=== PATIENT | male | born 1940 | race Caucasian/White ===

== ENCOUNTER 2023-04-03 10:51 | Outpatient (CLI) | payer MEDICARE, SELFPAY ==
--- NOTE | ~2023-04-03 | CT_ITS ---
EXAMINATION: CT brain wo con DATE: 04/03/2023 11:06 INDICATION: Subdural hematoma. Memory impairment. TECHNIQUE: Computed tomography (CT) of the head was performed without intravenous contrast. The mA wa s adjusted according to patient size. Iterative reconstruction technique was employed. The dose-lengt h product was 674.51 mGy-cm. 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 There is no intracranial hemorrhage, acute infarction, or abnormal intracranial mass lesion. There are scattered areas of low attenuation in the cerebral white matter, which is within normal limits for the patient's age. The ve ntricles are normal in size. There is mild mucosal thickening in the paranasal sinuses. The orbits ar e normal. The mastoid air cells are normal. There are old britney holes bilaterally. IMPRESSION: 1. 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 Reviewed, dictated and finalized at location A.
== END 2023-04-03 10:52 ==
LOC: MICIMG 10:52
PROVIDERS: PCP Family Medicine Adolescent Medicine; Visit Provider Family Medicine Adolescent Medicine
DX: R41.3 Other amnesia (principal); Z86.79 Personal history of other diseases of the circulatory system; Z86.73 Personal history of transient ischemic attack (TIA), and cerebral infarction without residual deficits
CPT/HCPCS: 70450

== ENCOUNTER 2023-06-20 12:34 | Outpatient (CLI) | payer MEDICARE, SELFPAY ==
--- NOTE | 2023-06-20 14:30 | NEURO_ITS ---
Impression: # Complains of left hand weakness. # Left ulnar neuropathy across the elbow. # Evolving left Carpal Tunnel Syndrome. # Needle/EMG exam mildly neurogenic in the muscles mentioned. Nerve Conduction Studies Anti Sensory Summary Table Stim Site NR Peak (ms) P-T Amp (?V) Site1 Site2 Delta-P (ms) Dist (cm) Bruno (m/s) Left Median Anti Sensory (2-3nd Digit) Wrist 3.5 13.0 Wrist 2-3nd Digit 3.5 14.0 40 Wrist 3.5 17.2 Wrist 2-3nd Digit 3.5 14.0 40 Left Radial Anti Sensory (Base 1st Digit) Wrist 2.1 48.6 Wrist Base 1st Digit 2.1 0.0 Left Ulnar Anti Sensory (5th Digit) Wrist 2.4 33.5 Wrist 5th Digit 2.4 14.0 58 Motor Summary Table Stim Site NR Onset (ms) O-P Amp (mV) Site1 Site2 Delta-0 (ms) Dist (cm) Bruno (m/s) Left Median Motor (Abd Poll Brev) Wrist 4.0 1.2 Elbow Wrist 6.5 37.0 57 Elbow 10.5 2.3 Left Ulnar Motor (Abd Dig Minimi) Wrist 3.0 6.3 A Elbow Wrist 6.0 32.0 53 A Elbow 9.0 5.0 B Elbow Wrist 4.0 27.0 68 B Elbow 7.0 6.2 F Wave Studies NR F-Lat (ms) L-R F-Lat (ms) Left Median (Mrkrs) (Abd Poll Brev) 32.05 Left Ulnar (Mrkrs) (Abd Dig Min) 31.09 EMG Side Muscle Nerve Root Ins Act Fibs Amp Dur Recrt Comment Left 1stDorInt Ulnar C8-T1 Nml Nml Nml >12ms Reduced Left Ext Indicis Radial (Post Int) C7-8 Nml Nml Nml Nml Nml Left Ext Digitorum Radial (Post Int) C7-8 Nml Nml Nml Nml Nml Left BrachioRad Radial C5-6 Nml Nml Nml Nml Nml Left PronatorTeres Median C6-7 Nml Nml Nml Nml Nml Left Abd Poll Brev Median C8-T1 Nml Nml Nml Nml Nml Left ABD Dig Min Ulnar C8-T1 Nml Nml Nml >12ms Reduced MTDD
== END 2023-06-20 12:35 | disposition home or self-care (01) ==
PROVIDERS: PCP Family Medicine Adolescent Medicine; Visit Provider Student in an Organized Health Care Education/Training Program
DX: G56.22 Lesion of ulnar nerve, left upper limb (principal); G56.02 Carpal tunnel syndrome, left upper limb
CPT/HCPCS: 95886; 95909

== ENCOUNTER 2024-03-14 01:15 | Day surgery (SDC) | payer MEDICARE, SELFPAY ==
[2024-03-08 14:45] VITALS: BMI 27.1
--- NOTE | 2024-03-08 15:22 | PC.NURSE ---
Addendum entered by Jazmin Ibarra RN 03/11/24 11:20: Pt also notified no food or drink after midnight, except for small sip of water for medications. Verbalizes understanding. Addendum entered by Jazmin Ibarra RN 03/11/24 11:18: Pt notified to also take phenytoin as scheduled morning of surgery with a small sip of water. Original Note: Report to the Outpatient Waiting Room, entrance under the green pavilion located off [facility], at time __8:00AM on date __03/14/24 . Planned Procedure Time: __10:00AM . Time changes happen often and if your time is changed the preop area will call you the afternoon before. - You and your visitor will be asked to self-screen and do not enter if you have any COVID symptoms. - A mask is optional within the hospital at this time. Patients may have clear liquids (water, carbonated beverages, clear teas, apple juice) until 3 hours prior to surgery with a maximum of 20 ounces. - No food from midnight until time of surgery - Infants may have breast milk until 4 hours before surgery, formula 6 hours prior to surgery. - Children will be allowed to drink immediately following surgery. If applicable, please bring a bottle or sippy cup to assist with drinking. Juice, water, soda, and popsicles are readily available. For infants on formula, please bring formula the day of surgery. Pacifiers are allowed. Take the following medications with a SIP of water the morning of surgery: ___KEPPRA, METOPROLOL DO NOT STOP ANY OF YOUR OTHER PRESCRIPTION MEDICATIONS PRIOR TO SURGERY ?EXCEPT THE FOLLOWING Medications to discontinue per physician NONE Date to take last dose Please no make-up, nail ivorian, hairspray, perfume, deodorant, or body powder the day of surgery. No jewelry (including any body piercings) or valuables the day of surgery, leave them at home. Please take a shower or bath the night before, or the morning of, surgery with an antibacterial soap. Wear comfortable, loose fitting clothing. Children are encouraged to wear pajamas. - Jewelry must be removed prior to entering the operating room. Rings and piercings that are not removed may be cut off. - The hospital will not accept responsibility for valuables. - Please leave all valuables, including medications, at home the day of surgery. If you are going home after surgery, a licensed fuel oil truck driver must drive you home. - NO public transportation without another adult if you receive anesthesia. - We recommend that an adult stay with you for 24 hours following discharge. - We also recommend that you do not drive, make important decision, drink alcoholic beverages, or take any drugs that were not prescribed by your health care provider for at least 24 hours after your discharge time. For Pediatric surgeries, we recommend two adults accompany the child home. Follow any additional instructions given to you from your surgeon. If you or anyone in your household have experienced Covid symptoms in the past week, please notify your surgeon or the nurse liaison at the phone number below for possible testing. Telephone instructions given to ____PATIENT & WIFE and asked if any additional questions and then verbalized understanding. Patient advised to call surgeon office or pre surgery nurse liaison [phone] if any additional questions.
--- NOTE | 2024-03-14 07:05 | PM.HPGS ---
History of Present Illness History of Present Illness Chief complaint: lesion of Left ulnar nerve Narrative: Patient seen and examined in pre-operative holding area. No interval change in medical history or symptoms. Patient recalls previous discussion of benefits and alternatives to procedure. Continues to desire to proceed with left cubital tunnel release . Reviewed procedure, post-op expectations and risks including but not limited to bleeding, infection, injury to tendon/nerve/vessel, decreased hand function, stiffness, RSD, no change or worsening of symptoms. I discussed the possible use of assistants and their participation in the case. Patient stated understanding and signed the consent form wishing to proceed. Review of Systems Review of Systems: All systems reviewed & are unremarkable except as noted in HPI and below PMFSH Past Medical History Medical History Abnormal colonoscopy 08/07 polyp Repeat 08/12 History of atrial fibrillation 1998 History of rheumatic fever Surgical History Surgical History History of vein stripping Family History Family History Father Heart disease Social History Social History Smoking status: Former smoker Tobacco type: cigars Second hand tobacco smoke exposure: No Smoking end date: 02/18/19 Additional smoking assessment comments: SMOKED 1 CIGAR/DAY X 10 YRS Alcohol intake: current Drinks per week: 7 Alcohol use details: A glass of wine daily Substance use: never Substance use type: does not use Lack of Transportation: No Lack of Food: Never True Current Housing: I Have Housing Concerned About Future Housing: No Difficulty Paying Gas/Electric Bills: No Difficulty Paying for Meds: No Currently Unemployed: No Education: Master's Degree or Higher Difficulty w/ Childcare or Family Care: No Living arrangements: with family Additional living arrangements comments: Occupation/Education: retired Gender identity (if verbalized by the patient): Male Sexual Orientation (if Verbalized by the Patient): Straight or Heterosexual Spiritual care concerns: No Agree to blood products: Yes Meds Home Medications and Allergies Home Medications Medication Instructions Recorded Confirmed Type tamsulosin 0.4 mg capsule 0.4 mg PO DAILY 11/24/21 03/08/24 History acetaminophen 500 mg tablet 1,000 mg PO Q6-8H PRN Pain 05/02/22 03/08/24 History (Tylenol Extra Strength) enalapril maleate 5 mg tablet 15 mg PO BID 05/02/22 03/08/24 History metoprolol tartrate 50 mg tablet 50 mg PO BID 05/02/22 03/08/24 History simvastatin 20 mg tablet 20 mg PO DAILY 05/02/22 03/08/24 History famotidine 20 mg tablet 20 mg PO QHS 06/01/23 03/08/24 History finasteride 5 mg tablet 5 mg PO DAILY #100 tabs 09/29/23 03/08/24 Rx donepezil 10 mg tablet See Rx Instructions .Route 12/21/23 03/08/24 Rx .COMPLEX #90 tabs levetiracetam 500 mg tablet 1,000 mg PO BID #180 tabs 12/21/23 03/08/24 Rx memantine 10 mg tablet 10 mg PO BID #180 tabs 12/21/23 03/08/24 Rx phenytoin sodium extended 100 mg 100 mg PO TID #270 caps 12/21/23 03/08/24 Rx capsule Allergies Allergy/AdvReac Type Severity Reaction Status Date / Time shellfish derived AdvReac Severe Vomiting Verified 03/08/24 14:38 Exam Narrative: unchanged Assessment and Plan Assessment and plan (1) Ulnar neuropathy: Qualifiers: Laterality: left Qualified Code(s): G56.22 - Lesion of ulnar nerve, left upper limb Code(s): G56.20 - Lesion of ulnar nerve, unspecified upper limb Status: Acute Assessment and Plan: cont as above
--- NOTE | 2024-03-14 07:06 | W.PM.PROC2 ---
Procedure Note - Detailed Date of Procedure 03/14/24 Pre-op Diagnosis left cubital tunnel syndrome Post-op Diagnosis Same Procedure Performed left CuTR Surgeon Heide Levi MD Client Service Coordinator tamar michelle pa-c Anesthesia MAC Description of Procedure INFORMED CONSENT:The patient was seen and examined and marked in the pre-op area.? The patient signed the consent form. PROCEDURE IN DETAIL: The patient taken back to OR on the stretcher in supine position. Time out performed with anesthesia, surgeon and staff agreeing on patient's name site and surgery to be performed SCDs were placed on the lower extremities and inflated A tourniquet was placed on {left} upper extremity and antibiotics given IV After anesthesia administered sedation I injected {8}cc 1%lido with epi and 0.5% marcaine plain at the operative site The?{left upper extremity}?was prepped and draped in sterile fashion the??{left upper extremity} was??exsanguinated with Esmarch bandage and tourniquet inflated to 250mmHg I next proceeded with making a longitudinal incision between two heads for flexor carpi ulnaris at end of {left} cubital tunnel with 15 blade scalpel.? Littler scissors were used to spread down to FCU fascia.? An incision was made in FCU fascia and ulnar nerve identified exiting cubital tunnel.? I proceeded with complete retrograde release of the cubital tunnel including 7cm proximal for the intermuscular septum.? The nerve appeared healthy with visible vaso nervorum.? There was no subluxation on full elbow range of motion. ? I irrigated with normal saline and closure with 4-0 monocryl for dermis and subcuticular. The incision was covered with Dermabond then 4x4s, hawa, and a posterior elbow splint for patient safety, security and comfort and secured with [place] bandages after the tourniquet was let down noting the hand was warm and well perfused.? Patient awaken from anesthesia and transferred to recovery in stable condition Complications - none EBL- 1cc Disposition - home in stable conditions tamar michelle pa-c was essential for positioning, retraction, closure and dressing placement [facility] Billing Surgery - Charge Forward: Surgery Billing ([id number] for tamar)
[2024-03-14 08:17] VITALS: BP 141/61; PULSE 49; RESP 18; TEMP 36.4; O2SAT 100
[2024-03-14 08:20] VITALS: BMI 28.9
[2024-03-14] MEDS: LIDO 1%/EPINEPHRINE 1:100,000 20 ML VIAL 10 ML INFILTRATE (08:29)
--- NOTE | 2024-03-14 09:18 | WPDANESEPPF ---
Anes - Initial Pre Proc Eval Procedure: Operation Date: 03/14/24 10:00 Proposed Procedures p Left Cubital Tunnel Release - Heide Levi MD Date/Time: 03/14/24 09:18 Surgeon: Heide Levi MD Pre Op Diagnosis: lesion of Left ulnar nerve Patient Data Age: 83 Gender: M Height: 1.83 m Weight: 91 kg Allergies Allergy/AdvReac Type Severity Reaction Status Date / Time shellfish derived AdvReac Severe Vomiting Verified 03/08/24 14:38 Home Medications Medication Instructions Recorded Confirmed Type tamsulosin 0.4 mg capsule 0.4 mg PO DAILY 11/24/21 03/08/24 History acetaminophen 500 mg tablet 1,000 mg PO Q6-8H PRN Pain 05/02/22 03/08/24 History (Tylenol Extra Strength) enalapril maleate 5 mg tablet 15 mg PO BID 05/02/22 03/08/24 History metoprolol tartrate 50 mg tablet 50 mg PO BID 05/02/22 03/08/24 History simvastatin 20 mg tablet 20 mg PO DAILY 05/02/22 03/08/24 History famotidine 20 mg tablet 20 mg PO QHS 06/01/23 03/08/24 History finasteride 5 mg tablet 5 mg PO DAILY #100 tabs 09/29/23 03/08/24 Rx donepezil 10 mg tablet See Rx Instructions .Route 12/21/23 03/08/24 Rx .COMPLEX #90 tabs levetiracetam 500 mg tablet 1,000 mg PO BID #180 tabs 12/21/23 03/08/24 Rx memantine 10 mg tablet 10 mg PO BID #180 tabs 12/21/23 03/08/24 Rx phenytoin sodium extended 100 mg 100 mg PO TID #270 caps 12/21/23 03/08/24 Rx capsule Laboratory Tests 03/14/24 08:48 Phenytoin Pending Patient hx anesthesia problems: none Family hx anesthesia problems: none Results Review: All pre-operative results and documents have been reviewed as part of the pre-operative evaluation. [facility] Past Medical History Medical History Abnormal colonoscopy 08/07 polyp Repeat 08/12 History of atrial fibrillation 1997 History of rheumatic fever Surgical History Surgical History History of vein stripping Family History Family History Father Heart disease Social History Social History Smoking status: Former smoker Tobacco type: cigars Second hand tobacco smoke exposure: No Smoking end date: 02/18/19 Additional smoking assessment comments: SMOKED 1 CIGAR/DAY X 10 YRS Alcohol intake: current Drinks per week: 7 Alcohol use details: A glass of wine daily Substance use: never Substance use type: does not use Lack of Transportation: No Lack of Food: Never True Current Housing: I Have Housing Concerned About Future Housing: No Difficulty Paying Gas/Electric Bills: No Difficulty Paying for Meds: No Currently Unemployed: No Education: Master's Degree or Higher Difficulty w/ Childcare or Family Care: No Living arrangements: with family Additional living arrangements comments: Occupation/Education: retired Gender identity (if verbalized by the patient): Male Sexual Orientation (if Verbalized by the Patient): Straight or Heterosexual Spiritual care concerns: No Agree to blood products: Yes Anes - Eval Final PreProcedure Day of Procedure 03/14/24 09:18 Patient weight: overweight Heart: regular rate and rhythm Lungs: clear to auscultation Airway: Mallampati scale Neurological: alert and oriented Last oral intake: >/= 8 hours ASA classification: III Emergent: no Anesthetic plan: proceed Anesthesia type and monitoring: general GIVS and standard monitoring Results Review: All pre-operative results and documents have been reviewed as part of the pre-operative evaluation. PTCA 1997, hx of [place]/VT and defib at that time. 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 Stress 2019 without ischemia, pt without cp or sob. Hx of subdural hematoma in the past. Informed Consent: The patient's anesthetic plan and
[2024-03-14 09:26] LABS: Phenytoin Dilantin < 3 ug/mL (10-20)
--- NOTE | 2024-03-14 09:40 | SUR.PREOP ---
2137- Notified Dr. Kiran patient's heart rate in high 40's with pacemaker/defib in place. Form on hard chart for pacemaker and OK to proceed with procedure. 0140- Patient's phenytoin level from today's draw resulted at less than 3. Dr. Kiran made aware of phenytoin level and OK to proceed with surgery.
[2024-03-14] MEDS: ceFAZolin 2 GM/D5W 50 ML 2 GM/50 ML BAG IVPB (09:49)
[2024-03-14 10:15] VITALS: BP 116/58; PULSE 54; RESP 14; O2SAT 97
[2024-03-14] MEDS: LACTATED RINGERS 1,000 ML 30 ML IV CONT (10:15)
[2024-03-14 10:45] VITALS: BP 105/57; PULSE 65; RESP 16; O2SAT 96
[2024-03-14 11:15] VITALS: BP 144/60; PULSE 51; RESP 16
== END 2024-03-14 11:25 | disposition home or self-care (01) ==
PROVIDERS: Anesthesiology; PCP Family Medicine Adolescent Medicine; Visit Provider Plastic Surgery
PROC: (CPT 64721; principal; 2024-03-14 10:00)
DX: G56.22 Lesion of ulnar nerve, left upper limb (principal); Z87.891 Personal history of nicotine dependence
CPT/HCPCS: 64718; 36415; 80185; J0690; J1100; J2405; J2704; J3010; J7120

== ENCOUNTER 2024-12-12 08:39 | Outpatient (CLI) | payer MEDICARE, SELFPAY ==
--- OUTSIDE RECORDS SUMMARY | 2024-12-12 09:16 | XMS_ITS ---
Author Organization [facility] Address [address] [place], [place] [id number] Care Team Providers Care School Laboratory Technician Name Role Phone Yareli ABRAMS, Ashley Primary Care Provider Unavailable Chris Barth Unavailable [phone] Alonso Sequeira [phone] REASON FOR VISIT 1yr audio Encounters Encounter Location Date Provider Diagnosis [facility] [address] [place], [place] [id number] 10/18/2023 Alonso Sequeira PLAN OF TREATMENT No Information Progress Notes * Antoni MCCORMICKDOB:1940 (84 yo M)Acc No.[id number]:10/18/2023 Audiogram Patient: CLIF Antoni Resendez Provider: Rosa CORONEL :1940 Age:83 Y Sex:Male Date:10/18/2023 Address:[address] [place], [place] [id number] Pcp:Claudy Alcocer Subjective: * Chief Complaints: * 1. 1yr audio. * Medical History: Objective: Assessment: Plan: * Treatment: * Billing Information: * Visit Code: * Procedure Codes: * Sign off status: Pending * Provider: Rosa CORONEL Date: 10/18/2023
--- OUTSIDE RECORDS SUMMARY | 2024-12-12 09:16 | XMS_ITS | Clinical Summary ---
Author Organization [facility] Address [address] [place] [id number] Care Team Providers Care Cable Splicer Name Role Phone Unavailable Primary Care Provider Unavailabl e Social History Tobacco Use Types Packs/Day Years Used Date Smoking Tobacco: Never Assessed Sex and Gender Information Value Date Recorded Sex Assigned at Not on file Legal Sex Male 4:05 PM CDT Gender Identity Not on file Sexual Orientation Not on file Plan of Treatment Health Maintenance Due Date Last Done Comments DTaP, Tdap and Td Vaccines ( 1 - Tdap) 1960 Pneumococcal Vaccine: 50+ Ye ars (1 of 1 - PCV) 1991 Zoster Vaccines (1 of 2) 1991 RSV Immunization or 60+ Years (1 - 1-dose 75+ series) 2016 COVID-19 Vaccine ( - 2023-2 5 season) 2024 Meningococcal B Vaccine Aged Out No l onger eligible based on patient's age to complete this topic Meningococcal Vaccine Aged Out No zak hussein eligible based on patient's age to complete this topic RSV Immunizations Under 20 Months Aged Out No longer eligible based on patient's age to complete this topic
--- OUTSIDE RECORDS SUMMARY | 2024-12-12 09:16 | XMS_ITS | Clinical Summary ---
Author Organization [facility] D Address [address] [place] [id number] Care Team Providers Care Broadcast Journalist Name Role Phone Vincenzo East MD Primary Care Prov ider Allergies Active Allergy Reactions Criticality Noted Date Comments Shellfish Nausea And Vomiting,Nausea & Vomiting High 11/27/2012 Shellfish Containing Products Nausea And Vomiting High 11/27/2012 Pt reports severe allergic reaction to shellfish. Pt reports severe allergic reaction to shellfish. Sulfa (Sulfonamide Antibiotics) Nausea And Vomiting High 07/18/2018 Medications enalapril (VASOTEC) 5 mg tablet Take 3 tablets (15 mg total) by mouth 2 (two) times a day Active metoprolol tartrate (LOPRESSOR) 50 mg immediate release tablet Take 1 tablet (50 mg total) by mouth 2 (two) times a day Active simvastatin (ZOCOR) 20 mg tablet Take 1 tablet (20 mg total) by mouth nightly Active tamsulosin (FLOMAX) 0.4 mg extended release capsule Take 1 capsule (0.4 mg total) by mouth nightly Active levETIRAcetam (KEPPRA) 500 mg tablet Take 1 tablet (500 mg total) by mouth 2 (two) times a day 06/04/2022 Active acetaminophen (TYLENOL) 500 mg tablet Take 2 tablets (1,000 mg total) by mouth daily as needed Active aspirin 81 mg enteric coated tablet Take 1 tablet (81 mg total) by mouth daily 06/17/2022 Active donepeziL (ARICEPT) 10 mg tablet Take 1 tablet (10 mg total) by mouth nightly at bedtime 11/21/2022 Active senna (SENOKOT) 8.6 mg tablet Take 1 tablet by mouth nightly 30 tablet 11 04/05/2022 Active famotidine (PEPCID) 20 mg tablet Take 1 tablet (20 mg total) by mouth 01/02/2023 Active finasteride (PROSCAR) 5 mg tablet 10/03/2023 Active naproxen (NAPROSYN) 500 mg tablet TAKE 1 TABLET BY MOUTH TWICE DAILY WITH FOOD NEEDED FOR PAIN Active Active Problems Problem Noted Date Diagnosed Date Elevated troponin level not due myocardial infar ction 10/20/2024 Scalp laceration 10/20/2024 Syncope and collapse 10/20/2024 Benign prostatic hyperplasia without lower urinary tract symptoms 09/08/2022 Tinnitus 08/30/2022 Fall 08/30/2022 SDH (subdural hematoma) 03/30/2022 Intracranial hemorrhage 03/26/2022 Chronic intracranial subdural hematoma 2 Overview (11/24/2022): 1 week ago Traumatic subarachnoid bleed with LOC of 1 hour to 5 hours 59 minutes, initial encounter 01/20/2022 Traumatic hemorrhage of cerebral white matter SAH (subarachnoid hemorrhage) 01/18/2022 Osteoarthritis 11/26/2020 Preop testing 07/04/2019 Hiatal hernia 06/09/2019 SVT (supraventricular tachycardia) 06/06/2019 Overview (11/26/2020): Last Assessment & Plan: These episodes likely represent SVT. This is because the farfield electrogram during the tachycardia resembles that of baseline. Fortunately, ATP results in reliable termination of these episodes, and as he has not had any episodes recently, will cont current therapy. He had a repeat echocardiogram in 12/2018 that showed EF 55%. # cont metoprolol 50mg PO BID # f/u with Lupe Barton for routine device checks # if symptomatic episodes develop, or become more frequent, can discuss EPS with ablation or increasing BB Assessment & Plan (05/11/2021 12:33 PM CDT): Best characterized as atrial tachycardia/fibrillation. He is asymptomatic, but has experienced inappropriate shocks in the past. He is off amiodarone (citing nausea), and has not been found to have recurrence. Device programming has been altered in order to hopefully avoid therapies for atrial fibrillation. If he does experience significant recurrence, sotalol may be initiated. The patient will follow-up with me in 12 months for an office visit and twelve- lead ECG. Assessment & Plan (01/07/2021 12:45 PM CDT): Likely atrial tachycardia verses atrial fibrillation/flutter. He is currently suppressed with amiodarone but may eventually switched to sotalol under Dr. Reece direction. Will obtain echo Doppler after his return from [place] to be sure that there has been no structural cardiac change which may have precipitated his arrhythmia. 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 He has a defibrillator. Assessment & Plan (07/04/2019 6:16 PM INSPECT[employer]ING): Asymptomatic. No recent recurrence. Assessment & Plan (12/31/2018 12:26 PM CDT): Normally functioning defibrillator. He is followed at [facility] for his arrhythmia. Belching 12/07/2018 Gastroesophageal reflux disease without esophagi tis 12/07/2018 ICD (implantable cardioverter-defibrillator) in place 01/01/2018 Overview (05/03/2021): Medtronic Evera XT VR ICD implanted 11/25/15 for VF. [place] - [facility] Assessment & Plan (06/19/2024 10:26 AM CDT): No [facility] transmissions in a year. The patient and spouse report that they have difficulty setting up the equipment in their home. Will ask nurses from the device Clinic to reach out to them. Assessment & Plan (06/23/2023 12:01 PM CDT): Interrogated today. Device is functioning normally. Follow. Assessment & Plan (11/27/2022 11:30 AM CDT): Status post defibrillator for VF. The patient's device was interrogated and found to be functioning appropriately. No substantial changes to programming were made. The patient is enrolled in the [facility], and we will continue to follow with remote monitoring when possible, and in-office device checks when necessary. Previously, the patient had shocks for SVT/atrial tachycardia; this has not been a issue recently. The patient will follow-up with me in 12 months for an office visit and twelve- lead ECG. Assessment & Plan (05/16/2022 6:32 AM CDT): Status post defibrillator for ventricular fibrillation, which occurred around the time of a series of infarcts. The best of my knowledge, the patient has not experienced significant ventricular arrhythmia or appropriate shocks since his device was placed over 20 years ago. His most recent series of events in the tachycardia zone again appears to be supraventricular in origin. He has been minimally symptomatic, and is overall burden of atrial arrhythmia appears very low. I raised his tachycardia zone to avoid further therapies for SVT. His device still monitors at 150 beats per minute. The patient's device was interrogated and found to be functioning appropriately. No substantial changes to programming were made. The patient is enrolled in the [facility], and we will continue to follow with remote monitoring when possible, and in-office device checks when necessary. The patient will follow-up with me in 6 months for an office visit and twelve- lead ECG. Assessment & Plan (06/25/2021 12:08 PM CDT): Followed by Dr. Reece. Assessment & Plan (05/11/2021 12:33 PM CDT): The patient's device was interrogated and found to be functioning appropriately. No substantial changes to programming were made. The patient is enrolled in the [facility], and we will continue to follow with remote monitoring when possible, and in-office device checks when necessary. Assessment & Plan (01/05/2021 1:39 PM CDT): The patient is status post defibrillator placement for [place] ventricular fibrillation in 1997. Recently, he experienced shocks per what appears to be atrial fibrillation/tachycardia with rapid rates. As far as we can tell, he has never received appropriate therapies in the past. He was initiated on amiodarone, which we will taper and continue. If he continues to remain free from arrhythmia, we may consider changing to sotalol in 6 months time. The patient's device was interrogated and found to be functioning appropriately. I made changes to his ventricular tachycardia and ventricular fibrillation zones, and added a monitoring zone. The patient is enrolled in the [facility], and we will continue to follow with remote monitoring when possible, and in-office device checks when necessary. I expect a monitor zone to record any rapidly conducting atrial fibrillation that the patient may have. If he is found to have a significant arrhythmia burden, anticoagulation would be recommended. Assessment & Plan (07/04/2019 6:16 PM INSPECTOR [employer]KE [employer]ING): Followed through [facility]. Functioning normally. Assessment & Plan (07/02/2018 11:27 AM INSPECTOR [employer]KE [employer]ING): Monitored at [facility]. Assessment & Plan (01/01/2018 12:01 PM CDT): Up-to-date with follow-up through [facility]. Coronary artery disease of n ative artery of [place] heart with stable angina pectoris ([facility]) 07/03/2017 Assessment & Plan (06/19/2024 10:25 AM CDT): Doing well. No chest discomfort. Continue aspirin, metoprolol, Zocor. Assessment & Plan (06/23/2023 12:00 PM CDT): Doing well. No chest discomfort. Continue aspirin and statin. Assessment & Plan (06/17/2022 11:44 AM CDT): Doing well. No chest discomfort on his current regimen. Continue metoprolol. Have asked him to resume aspirin 81 mg daily. Assessment & Plan (12/24/2021 11:15 AM CDT): Doing reasonably well. No chest discomfort. Continue secondary prevention with aspirin and statin. His primary care physician is requesting a change from metoprolol to propanolol to address a tremor. I do not have a strong objection but would recommend that an equivalent dose of propranolol be prescribed as a substitute for his metoprolol. Assessment & Plan (06/25/2021 12:06 PM CDT): No symptoms of myocardial ischemia. Continue aspirin 81 mg daily and metoprolol 50 mg b.i.d.. Assessment & Plan (01/07/2021 12:43 PM CDT): No symptoms of myocardial ischemia. Recent arrhythmia being supraventricular is probably not ischemically mediated. Continue aspirin and metoprolol. Assessment & Plan (05/08/2020 5:07 PM CDT): No symptoms of myocardial ischemia. Favorable myocardial perfusion study 07/10/2019. He is cleared for his upcoming surgery and is anticipated to be at low risk of cardiac complications. Assessment & Plan (07/04/2019 6:14 PM INSPECTOR [employer]ING): No symptoms of myocardial ischemia. It has been over three years since his last myocardial perfusion study, and I have recommended that this be repeated prior to his upcoming hiatal hernia surgery. Continue aspirin. Assessment & Plan (12/31/2018 12:25 PM CDT): No symptoms of myocardial ischemia. Continue aspirin and metoprolol. Assessment & Plan (07/02/2018 11:26 AM INSPECTOR [employer]ING): No symptoms of myocardial ischemia. Continue aspirin. Assessment & Plan (01/01/2018 12:00 PM CDT): No symptoms of myocardial ischemia. Continue aspirin Assessment & Plan (07/03/2017 12:00 PM INSPECTOR [employer]ING): Asymptomatic. Continue ASA and beta khushi tx. Mixed hyperlipidemia 07/03/2017 Assessment & Plan (06/19/2024 10:25 AM CDT): Well controlled on his last assessment. Continue Zocor. Assessment & Plan (06/23/2023 12:00 PM CDT): LDL acceptable today at 63 mg/dL. Continue simvastatin. Assessment & Plan (12/24/2021 11:15 AM CDT): Continue Zocor. Lipid panel today. His HDL exceeds 100 mg/dL. Unable to calculate LDL. Assessment & Plan (06/25/2021 12:08 PM CDT): He is on less than high-intensity statin therapy but LDL on 11/04/2020 was 59. Continue simvastatin 20 mg daily. Assessment & Plan (01/07/2021 12:45 PM CDT): On chronic lipid lowering therapy with good control. No changes made. Assessment & Plan (05/08/2020 5:07 PM CDT): On chronic lipid lowering therapy with good control. No changes made. Assessment & Plan (07/04/2019 6:15 PM INSPECTOR [employer]KE [employer]ING): On chronic lipid lowering therapy with good control. No changes made. Assessment & Plan (12/31/2018 12:25 PM CDT): On chronic lipid lowering therapy with good control. No changes made. Assessment & Plan (07/02/2018 11:27 AM INSPECTOR [employer]ING): On chronic lipid lowering therapy with good control. No changes made. Because of his high HDL, LDL cannot be calculated, but is definitely less than 83. Assessment & Plan (01/01/2018 12:00 PM CDT): On chronic lipid lowering therapy with good control. No changes made. Assessment & Plan (07/03/2017 12:01 PM INSPECTOR [employer]KE [employer]ING): LDL could not be calculated because of high HDL. Will have lab draw. Continue statin rx. Essential hypertension 07/03/2017 Assessment & Plan (06/17/2022 11:44 AM CDT): Well controlled. Continue metoprolol and enalapril. Assessment & Plan (06/25/2021 12:07 PM CDT): Blood pressure is well controlled on Vasotec 15 mg b.i.d. and metoprolol 50 mg b.i.d.. I do not believe his cough is related to vasotec as it is a productive rather than a dry cough. Assessment & Plan (01/07/2021 12:43 PM CDT): Blood pressure is adequately controlled on current regimen. No change was made. Assessment & Plan (05/08/2020 5:07 PM CDT): Blood pressure is adequately controlled on current regimen. No change was made. Assessment & Plan (07/04/2019 6:15 PM INSPECTOR [employer]ING): Blood pressure is adequately controlled on current regimen. No change was made. Assessment & Plan (12/31/2018 12:26 PM CDT): Blood pressure is adequately controlled on current regimen. No change was made. Assessment & Plan (07/02/2018 11:26 AM INSPECTOR [employer]ING): Blood pressure is adequately controlled on current regimen. No change was made. Assessment & Plan (01/01/2018 12:00 PM CDT): Blood pressure is adequately controlled on current regimen. No change was made. Assessment & Plan (07/03/2017 12:06 PM INSPECTOR [employer]ING): Blood pressure is adequately controlled on current regimen. No change was made. AICD at end of battery life 11/25/2015 Resolved Problems Problem Noted Date Diagnosed Date Resolved Date On amiodarone therapy 01/05/20212020 Assessment & Plan (01/05/2021 1:38 PM CDT): 12-lead ECG today does not demonstrate any changes that would prohibit continued use of amiodarone. I will reduce his dose to 200 mg daily at this time. As long as the patient continues on this medication, an ECG should be performed at least every 6 months to monitor for toxicity. Liver function tests and thyroid function tests should be performed at least every 6 months, an assessment of pulmonary function will be needed yearly. The patient will follow-up with me in 4 months for an office visit and twelve- lead ECG. Heart attack 08/22/2011 06/19/2024 Encounters Date Type Department Care Team Description 12/09/2024 11:41 AM CDT - 12/09/2024 11:59 PM CDT Hospital Encounter [id number] [address] [place] [id number] Bilateral hip pain; Aftercare following bilateral hip joint replacement surgery Discharge Disposition: Discharge to home or self care 12/09/2024 11:10 AM CDT Office Visit [facility] Orthopaedic Surgery [address] [place] [address] Gautam Bain MD Bilateral hip pain (Primary Dx); Aftercare following bilateral hip joint replacement surgery from Last 3 Months Immunizations Immunization Administration Dates Next Due Hep A, Adult 05/27/2019 Influenza Virus Vaccine Trivalent Mdv 06/17/2021 ,04/24/2020 Influenza, Trivalent, High D ose, Split, Preservative Free, Intramuscular 06/17/2021 Moderna SARS-CoV-2 Monovalen t Vaccination (12+ YRS) 06/17/2021,11/04/2020,10/06/2020 Pfizer SARS-CoV-2 Monovalent Vaccination (12+ Yrs) PURPLE 06/17/2021 TD Preservative Free 10/20/2024 Surgical History Surgery Date Site/Laterality Comments TOTAL HIP ARTHROPLASTY Bilateral Total Hip Replacement ARM SURGERY arm surgery VEIN LIGATION AND STRIPPING Vein Stripping CORONARY STENT PLACEMENT Coronary Stent Placement CARDIAC DEFIBRILLATOR PLACEMENT Implantable Defibrillator JOINT REPLACEMENT HERNIA REPAIR HIATAL HERNIA REPAIR Medical History Medical History Date Comments Presence of single chamber a utomatic cardioverter/defibrillator (AICD) 01/01/2018 Medtronic Virtuoso V /ICD implanted 08/19/2008 for [id number]. PATIENTS ICD IS FOLLOWED AT [facility] Hiatal hernia GERD (gastroesophageal reflux disease) Gastric reflux Hypercholesteremia Family History Medical History Relation Name Comments Heart attack Father Relation Name Status Comments Father Mother Social History Tobacco Use Types Packs/Day Years Used Date Smoking Tobacco: Never Smokeless Tobacco: Never Tobacco Cessation:Counseling Given: Not Answered Alcohol Use Standard Drinks/Week Comments Yes 1 (1 standard drink = 0.6 oz pur e alcohol) daily Sex and Gender Information Value Date Recorded Sex Assigned at Not on file Legal Sex Male 9:13 PM INSPECT[employer] Gender Identity Not on file Sexual Orientation Not on file Occupation Industry Job Start Date Job End Date Retired Not on file Not on file Not on file Obstetrics History Last Filed Vital Signs Vital Sign Reading Time Taken Comments Blood Pressure 120/64 06/19/2024 9:40 AM CDT Pulse 64 06/19/2024 9:40 AM CDT Temperature 37 C (98.6 F) 12/07/2020 7:50 PM CDT Respiratory Rate 16 05/12/2022 10:09 AM CDT Oxygen Saturation 95% 06/19/2024 9:40 AM CDT Inhaled Oxygen Concentration - - Weight 90.7 kg (200 lb) 06/19/2024 9:40 AM CDT Height 180.3 cm (5' 11 ) 06/19/2024 9:40 AM CDT Body Mass Index 27.89 06/19/2024 9:40 AM CDT Plan of Treatment Health Maintenance Due Date Last Done Comments Depression Screening 1941 Fall Risk Assessment 1941 Hepatitis B Screening 1959 Pneumococcal vaccine 65+ (1 of 2 - PCV) 1960 Zoster Vaccine (1 of 2) 1991 Well Visit 65+ 2006 Covid-19 Vaccine (5 - 2023-2 5 season) 2024 06/17/2021, 06/17/2021, 11/04/2020, Additional history exists DTaP/Tdap/Td Vaccine (1 - Tdap) 10/21/2024 Influenza Vaccine (Season Ended) 2025 06/17/2021, 06/17/2021, 04/24/2020 Procedures Procedure Name Priority Date/Time Associated Diagnosis Comments XR HIPS BILATERAL 3 OR 4 VW Schedule Routine, Read Routine (OP Routine) 12/09/2024 12:05 PM CDT Bilateral hip pain Aftercare following bilateral hip joint replacement surgery from Last 3 Months Results * XR Hips Bilateral 3 or 4 Views (12/09/2024 12:05 PM CDT) Anatomical Region Laterality Modality Lower Extremities, Hip, Pelvis Bilateral C omputed Radiography 12/09/2024 12:3 9 PM CDT Impressions 12/09/2024 12:39 PM CDT Unchanged bilateral total hip arthroplasty with asymmetric liner wear of the left hip arthroplasty. Electronically signed by: Steven Braxton D.O. Narrative 12/09/2024 12:39 PM CDT EXAMINATION: XR HIPS BILATERAL 3 OR 4 VW HISTORY: TERESA CHAVA F/U COMPARISON: Radiographs 12/11/2023 FINDINGS: Right total hip arthroplasty in expected position. Left total hip arthroplasty with unchanged asymmetric liner wear of the left hip arthroplasty with superior migration of the femoral head component. No osteolysis or periprosthetic fracture bilaterally. Mild pubic symphysis arthrosis. Right inguinal herniorrhaphy clips. Procedure Note Steven Braxton, - 12/09/2024 EXAMINATION: XR HIPS BILATERAL 3 OR 4 VW HISTORY: ETRESA CHAVA F/U COMPARISON: Radiographs 12/11/2023 FINDINGS: Right total hip arthroplasty in expected position. Left total hip arthroplasty with unchanged asymmetric liner wear of the left hip arthroplasty with superior migration of the femoral head component. No osteolysis or periprosthetic fracture bilaterally. Mild pubic symphysis arthrosis. Right inguinal herniorrhaphy clips. IMPRESSION: Unchanged bilateral total hip arthroplasty with asymmetric liner wear of the left hip arthroplasty. Electronically signed by: Steven Braxton D.O. Gautam Bain MD IMG XR PROCEDURES Final Resul t from Last 3 Months Insurance [facility] MEDICARE ADVANTAGE UHC MEDICARE ADVANTAGE UHC MEDICARE ADVANTAGE Care Teams Broadcast Journalist Relationship Specialty Start Date End Date Vincenzo East MD [address] [place] [address] PCP - General 07/02/13
--- OUTSIDE RECORDS SUMMARY | 2024-12-12 09:16 | XMS_ITS | Referral Summary ---
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 Discharge Disposition: Discharge to home or self care 12/09/2024 11:10 AM CDT Office Visit [facility] Orthopaedic Surgery [address] [place] [address] Medical Office Building [address] [place] [address] Gautam aBin MD Bilateral hip pain (Primary Dx); 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 He has a defibrillator. Assessment & Plan (07/04/2019 6:16 PM REFRACTORY MIXER): Asymptomatic. No recent recurrence. Assessment & Plan (12/31/2018 12:26 PM CDT): Normally functioning defibrillator. He is followed at [facility] for his arrhythmia. 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 Recently, he experienced [...] recommended. Assessment & Plan (07/04/2019 6:16 PM REFRACTORY MIXER): Followed through [facility]. Functioning normally. Assessment & Plan (07/02/2018 11:27 AM REFRACTORY MIXER): Monitored at [facility]. Assessment & Plan (01/01/2018 12:01 PM CDT): Up-to-date with follow-up through [facility]. 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 Assessment & Plan (07/04/2019 6:14 PM REFRACTORY MIXER): No symptoms of myocardial ischemia. It has been over three years since his last myocardial perfusion study, and I have recommended that this be repeated prior to his upcoming hiatal hernia surgery. Continue aspirin. Assessment & Plan (12/31/2018 12:25 PM CDT): No symptoms of myocardial ischemia. Continue aspirin and metoprolol. Assessment & Plan (07/02/2018 11:26 AM REFRACTORY MIXER): No symptoms of myocardial ischemia. Continue aspirin. Assessment & Plan (01/01/2018 12:00 PM CDT): No symptoms of myocardial ischemia. Continue aspirin Assessment & Plan (07/03/2017 12:00 PM REFRACTORY MIXER): Asymptomatic. Continue ASA and beta khushi tx. [...] made. Assessment & Plan (07/04/2019 6:15 PM REFRACTORY MIXER): On chronic lipid lowering therapy with good control. No changes made. Assessment & Plan (12/31/2018 12:25 PM CDT): On chronic lipid lowering therapy with good control. No changes made. Assessment & Plan (07/02/2018 11:27 AM REFRACTORY MIXER): On chronic lipid lowering therapy with good control. No changes made. Because of his high HDL, LDL cannot be calculated, but is definitely less than 83. Assessment & Plan (01/01/2018 12:00 PM CDT): On chronic lipid lowering therapy with good control. No changes made. Assessment & Plan (07/03/2017 12:01 PM REFRACTORY MIXER): LDL could not be calculated because of [...] made. Assessment & Plan (07/04/2019 6:15 PM REFRACTORY MIXER): Blood pressure is adequately controlled on current regimen. No change was made. Assessment & Plan (12/31/2018 12:26 PM CDT): Blood pressure is adequately controlled on current regimen. No change was made. Assessment & Plan (07/02/2018 11:26 AM REFRACTORY MIXER): Blood pressure is adequately controlled on current regimen. No change was made. Assessment & Plan (01/01/2018 12:00 PM CDT): Blood pressure is adequately controlled on current regimen. No change was made. Assessment & Plan (07/03/2017 12:06 PM REFRACTORY MIXER): Blood pressure is adequately controlled on current [...] twelve- lead ECG. Heart attack 08/22/2011 06/19/2024 Immunizations Immunization Administration Dates Next Due Hep A, Adult 05/27/2019 Influenza Virus Vaccine Trivalent Mdv 06/17/2021 ,04/24/2020 Influenza, Trivalent, High D ose, Split, Preservative Free, Intramuscular 06/17/2021 Moderna SARS-CoV-2 Monovalen t Vaccination (12+ YRS) 06/17/2021,11/04/2020,10/06/2020 Pfizer SARS-CoV-2 Monovalent Vaccination (12+ Yrs) PURPLE 06/17/2021 TD Preservative Free 10/20/2024 Social History Tobacco Use Types Packs/Day Years Used Date Smoking Tobacco: Never Smokeless Tobacco: Never Tobacco Cessation:Counseling Given: Not Answered Alcohol Use Standard Drinks/Week Comments Yes 1 (1 standard drink = 0.6 oz pur e alcohol) daily Sex and Gender Information Value Date Recorded Sex Assigned at Not on file Legal Sex Male 9:13 PM REFRACTORY MIXER Gender Identity Not on file Sexual Orientation Not on file Occupation Industry Job Start Date Job End Date Retired Not on file Not on file Not on file Last Filed Vital Signs Vital Sign Reading [...] 06/19/2024 9:40 AM CDT Plan of Treatment Not on file Procedures Procedure Name Priority Date/Time Associated Diagnosis [...] Right inguinal herniorrhaphy clips. Procedure Note Steven Braxton DO - 12/09/2024 EXAMINATION: XR HIPS BILATERAL 3 [...] Resul t from Last 3 Months Insurance [place] [address] [facility] [address] Care Teams Legal Contracts Specialist Relationship Specialty Start Date End Date Vincenzo East MD [address] [place] [address] PCP - General 07/02/13
--- OUTSIDE RECORDS SUMMARY | 2024-12-12 09:16 | XMS_ITS | Clinical Summary ---
Author Organization [facility] Address [address] [place] [address] Care Team Providers Care Economic Research Assistant Name Role Phone Vincenzo East MD Primary Care Provider + Trini Carvajal MD Unavailable Unavailabl e Source Comments [facility],non-owned Affiliates and Associated Physician Practices is amultiple site organization consisting of ambulatory clinics and hospital sitesin [place], [place], [place] and [place]. This disclosure is being madepursuant to the Care Everywhere program and may not contain all information available regarding this patient. Last updated 18.[facility] Allergies Active Allergy Reactions Criticality Noted Date Comments Shellfish Allergy Nausea and/or Vomiting High 2017 Medications * Be aware that medications may not be up to date on this document. Alwaysverify current medications with the patient. finasteride (PROSCAR) 5 MG tablet Take 1 (one) tablet by mouth once daily 0 Active tamsulosin (FLOMAX) 0.4 MG capsule TAKE 1 CAPSULE BY MOUTH AT NIGHT 90 capsule 1 Active simvastatin (ZOCOR) 20 MG tablet TAKE 1 TABLET BY MOUTH IN THE EVENING 90 tablet 1 Active enalapril (VASOTEC) 5 MG tablet TAKE 3 TABLETS BY MOUTH TWICE DAILY 540 tablet 1 Active metoprolol tartrate (LOPRESSOR) 50 MG tablet Take 1 (one) tablet by mouth 2 times daily 180 tablet 3 1 Active levETIRAcetam (Keppra) 1000 MG tablet Take 1 (one) tablet by mouth 2 times daily Active phenytoin ER (Dilantin) 100 MG capsule Take 1 (one) capsule by mouth 3 times daily Active traMADol (Ultram) 50 MG tablet Take 1 (one) tablet by mouth at bedtime Active acetaminophen (Tylenol) 500 MG tablet Take 2 (two) tablets by mouth every 24 hours as needed for Fever or Pain Maximum allowable Acetaminophen amount = 4 Grams (4000 mg) / 24 hours. Active famotidine (Pepcid) 20 MG tabletIndicatio ns:Gastroesopha geal reflux disease without esophagitis Take 1 (one) tablet by mouth at bedtime 30 tablet 2 3 Active Active Problems Problem Noted Date Diagnosed Date Hiatal hernia 06/09/2019 SVT (supraventricular tachycardia) 06/06/2019 Assessment & Plan (06/06/2019 1:32 PM CDT): These episodes likely represent SVT. This is [...] discuss EPS with ablation or increasing BB Gastroesophageal reflux disease without esophagi tis 12/07/2018 Belching 12/07/2018 Ventricular fibrillation 12/01/2017 Assessment & Plan (06/06/2019 1:23 PM CDT): No episodes of Vfib on this most recent interrogation. Cont to monitor. Family History Medical History Relation Name Comments CAD (Coronary Artery Disease) Father Relation Name Status Comments Father Social History Tobacco Use Types Packs/Day Years Used Date Smoking Tobacco: Former Cigars Smokeless Tobacco: Never Tobacco Cessation:Counseling Given: Not Answered Comments:Ocassional use-3 a week... cigars Alcohol Use Standard Drinks/Week Comments Not Currently 2 (1 standard drink = 0.6 oz pur e alcohol) AUDIT-C Answer Date Recorded Frequency of Alcohol Consumption 4 or more times a week 07/02/2019 Average Number of Drinks 1 or 2 019 Frequency of Binge Drinking Never 06/21 Sex and Gender Information Value Date Recorded Sex Assigned at Not on file Legal Sex Male 6:18 AM AIRBRUSH ARTIST PHOTOGRAPHY Gender Identity Not on file Sexual Orientation Not on file Last Filed Vital Signs Vital Sign Reading Time Taken Comments Blood Pressure 121/53 01/02/2023 1:16 PM CDT Pulse 54 01/02/2023 1:16 PM CDT Temperature 36.3 C (97.4 F) 01/02/2023 1:16 PM CDT Respiratory Rate 18 08/20/2020 7:47 AM AIRBRUSH ARTIST PHOTOGRAPHY Oxygen Saturation 97% 01/02/2023 1:16 PM CDT Inhaled Oxygen Concentration - - Weight 87.2 kg (192 lb 3.2 oz) 01/02/2023 1:16 P M CDT Height 188 cm (6' 2 ) 01/02/2023 1:16 PM CDT Body Mass Index 24.68 01/02/2023 1:16 PM CDT Plan of Treatment Health Maintenance Due Date Last Done Comments DTAP/TDAP/TD VACCINES (1 - Tdap) 1960 PNEUMOCOCCAL VACCINE 50+ (1 of 1 - PCV) 1991 ZOSTER VACCINE (1 of 2) 1991 Respiratory Syncytial Virus (RSV) Vaccine Pt: or over 60 yrs (1 - 1-dose 75+ series) 2016 COVID-19 VACCINE ( season) 2024 06/17/2021, 06/17/2021, 11/04/2020, Additional history exists DEPRESSION SCREENING 08/21/2024 MEDICARE AWV CALENDAR YEAR 2024 INFLUENZA VACCINE (Season Ended) 2025 06/17/2021, 04/24/2020 HEPATITIS B VACCINE Aged Out No longe r eligible based on patient's age to complete this topic HIB VACCINE Aged Out No longer eligi ble based on patient's age to complete this topic HPV VACCINE Aged Out No longer eligi ble based on patient's age to complete this topic MENINGOCOCCAL (Group B) VACCINE SHARED DECISION-MAKING Aged Out No longer eligible based on patient's age to complete this topic MENINGOCOCCAL GROUPS A/C/Y/W VACCINE Aged Out No longer eligible based on patient's age to complete this topic Goals Goal Patient Goal Type Associated Problems Recent Progress Patient-Stated? Author Safety General On track( 023 1:24 PM CDT) Vesta Bartlett, RN Note: Expected end date: Ongoing Interventions: Your nurse will assess your risk for falls/injury each visit Use appropriate and safe transfer methods Medication Management General On track( 023 1:24 PM CDT) Vesta Bartlett, NOELLE Note: Expected end date: Ongoing Interventions: Take all medications as prescribed Let your doctor know right away about any changes in your medications Medical Devices Implanted Type Area Community Relations Police Lieutenant Device Identifier Shelf Expiration Date Model / Serial / Lot Sys Fx 37cm Cpsr Str Ss Peek Perm Hndl Implanted:Qty: 1 on 06/18/2020 by Heriberto Prado MD at [facility] Abdomen [employer] 03/17/2022 [id number] / / [id number] Bard Soft Mesh Large Pore Monofilament Poly Propylene Implanted:Qty: 1 on 06/18/2020 by Guzman Merida MD at [facility] Right: Abdomen [employer] 01/15/2025 [id number] / / [id number] Mesh Srg 6x3in Lg Pore Knit Mfl Smth Rnd Implanted:Qty: 1 on 08/04/2020 by Guzman Merida MD at [facility] Right: Abdomen [employer] 08/17/2024 [id number] / / [id number] Insurance [facility] MANAGED MEDICARE ADV [facility] MANAGED MEDICARE ADV Advance Directives * Full Code (Latest Code Status on File) Date Activated Date Inactivated Comments 06/18/2020 4:47 PM 06/19/2020 4:03 PM Care Teams Economic Research Assistant Relationship Specialty Start Date End Date Vincenzo East MD [address] [address] PCP - General 12/01/17 Trini Carvajal MD [address] [address] [address] Vice President Regulatory Cardiology 01/01/19
--- OUTSIDE RECORDS SUMMARY | 2024-12-12 09:17 | XMS_ITS ---
Author Organization [facility] Address [address] [place], [place] [id number] Care Team Providers Care Crozer Operator Name Role Phone Yareli ABRAMS, Ashley Primary Care Provider Unavailable BarthChris perry Unavailable [phone] Emmanuelle Bailey Unavailable [phone] REASON FOR VISIT Discuss audio Encounters Encounter Location Date Provider Diagnosis [facility] [address] [place], [place] [id number] 10/18/2023 Emmanuelle Bailey PLAN OF TREATMENT No Information Progress Notes * Antoni MENEZESDOB:1940 (84 yo M)Acc No.[id number]:10/18/2023 Progress Notes Patient: Antoni MENEZES Appointment Provider: Emmanuelle Bailey PA-C :1940 Age:83 Y Sex:Male Date:10/18/2023 Address[address] Pcp:Claudy Alcocer Subjective: * Chief Complaints: * 1. Discuss audio. * Medical History: Objective: Assessment: Plan: * Treatment: * Billing Information: * Visit Code: * Procedure Codes: * Sign off status: Pending * Appointment Provider: Emmanuelle Bailey PA-C Date: 10/18/2023
--- OUTSIDE RECORDS SUMMARY | 2024-12-12 09:17 | XMS_ITS | Patient Health Record ---
Author Organization [facility] Address [address] [place], [place] [address] Care Team Providers Care Holter Technician Name Role Phone Ashley Downs MD Primary Care Provider Unavailable Chris Barth Unavailable [phone] ALLERGIES Allergen (clinical drug ingredient) Drug/Non Drug Allergy documented on EMR Reaction Allergy Type Onset Date Status No Known Drug Allergy Unknown Drug Allergy Active REASON FOR REFERRAL No Information MEDICATIONS Medication SIG (Take, Route, Fr equency, Duration) Notes Start Date End Date Status Vasotec 5 MG 1 tablet Orally Once a day Active Simethicone Active Aspir-81 Active Hydrocortisone 2.5 % 1 application Exter marjan Once a day Active Proscar 5 MG 1 tablet Orally Once a day Active Lopressor 50 MG 1 tablet with food O rally Twice a day Active Keppra 500 MG 1 tablet Orally every 12 hrs Active Dilantin 100 MG 1 capsule Orally every 12 hrs Active Protonix 40 MG 1 tablet Orally Once a day Active Zocor 20 MG 1 tablet in the even ing Orally Once a day Active Neurontin 100 MG 1 capsule Orally Once a day Active Flomax 0.4 MG 1 capsule Orally Once a day Active SOCIAL HISTORY Tobacco Use: Social History Observation Description Date Details (start date - stop date) Unknown Sex Assigned At : Social History Observation Description Sex Assigned At Unknown Tobacco Use/Smoking Question Answer Notes Tobacco use: Uses tobacco in other forms Tobacco use other than smoking: Question Answer Notes Are you an other tobacco user? 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 [address] [place] [id number] Antoni Mccormick Self - patient is the insured MEDICAL (GENERAL) HISTORY Medical History History ICD Code Stroke Seizure Hypertension Heart Attack Surgical History Surgery Date(Month/Year) Pacemaker Heart Stent Hip Replacement
[2024-12-12 09:24] LABS: Basophils Absolute Auto 0.1 K/mm3 (0.0-0.1); Basophils Percent Auto 0.8 % (0.2-1.2); Eosinophils Absolute Auto 0.4 K/mm3 (0-0.3); Eosinophils Percent Auto 6.4 % (0-4.4); Hematocrit 45.8 % (42.0-52.0); Hemoglobin 14.7 g/dL (14.0-18.0); Immature Granulocyte Absolute 0.01 K/mm3 (0.00-0.031); Immature Granulocyte Percent A 0.2 % (0-0.5); Immature Platelet Fraction Pct 2.8 % (0.9-11.2); Lymphocytes Absolute Auto 2.96 K/mm3 (0.9-3.2); Lymphocytes Percent Auto 48.4 % (18.3-44.2); Mean Corpuscular HGB Conc 32.1 g/dl (32-36); Mean Corpuscular Hemoglobin 32.4 pg (26-34); Mean Corpuscular Volume 100.9 fl (80-100); Mean Platelet Volume 10.1 fl (7.4-10.4); Monocytes Absolute Auto 0.5 K/mm3 (0.1-0.6); Monocytes Percent Auto 8.3 % (2.6-8.5); Neutrophils Absolute Auto 2.2 K/mm3 (1.3-6.7); Neutrophils Percent Auto 35.9 % (45.5-73.1); Platelet Count Result 135 k/mm3 (150-375); Red Blood Count 4.54 M/mm3 (4.6-6.20); Red Cell Distribution Width 13.3 % (11.5-14.5); White Blood Count 6.1 K/mm3 (4.5-10.0)
[2024-12-12 09:38] LABS: Alanine Aminotransferase 10 U/L (6-50); Albumin Level 4.1 g/dL (3.5-5.1); Alkaline Phosphatase 53 U/L (38-126); Anion Gap 7 mmol/L (4-12); Aspartate Amino Transferase 24 U/L (17-59); Bilirubin,Total 1.7 mg/dL (0.2-1.3); Blood Urea Nitrogen 12 mg/dL (9-20); Calcium 8.9 mg/dL (8.4-10.2); Carbon Dioxide 27 mmol/L (22-30); Chloride 104 mmol/L (98-107); Estimated Glomerular Filt Rate > 60; Glucose 93 mg/dL (65-110); Potassium 4.5 mmol/L (3.4-5.0); Sodium 138 mmol/L (137-145)
[2024-12-14 10:58] LABS: Levetiracetam Keppra 20.2 mcg/mL (6.0-46.0)
[2024-12-16 04:44] LABS: Methylmalonic Acid 194 nmol/L (85-423)
[2024-12-16 11:15] LABS: Homocysteine 16.5 umol/L (<11.4)
[2024-12-16 12:59] LABS: Vitamin B1 7 nmol/L (8-30)
[2024-12-16 15:08] LABS: Red Blood Cell Folate 442 ng/mL RBC (>280)
== END 2024-12-12 08:40 | disposition home or self-care (01) ==
LOC: ANHLAB 08:48
PROVIDERS: PCP Family Medicine Adolescent Medicine; Visit Provider Psychiatry & Neurology Neurology
DX: R56.9 Unspecified convulsions (principal); F06.8 Other specified mental disorders due to known physiological condition; S06.9X0S Unspecified intracranial injury without loss of consciousness, sequela; X58.XXXS Exposure to other specified factors, sequela; G56.22 Lesion of ulnar nerve, left upper limb; F10.20 Alcohol dependence, uncomplicated
CPT/HCPCS: 36415; 80053; 80177; 82607; 82747; 83090; 83735; 83921; 84207; 84425; 85025; 85055

== ENCOUNTER 2025-03-06 14:26 | Outpatient (CLI) | payer MEDICARE, SELFPAY ==
--- NOTE | ~2025-03-06 | CT_ITS ---
CT head without contrast Indication: Altered mental status COMPARISON: 04/03/2023 Technique: Serial scans were obtained through the brain without the administration of contrast. Dose reduction technique was used on this scan by utilizing automated exposure control and iterative recon struction technique. The dose-length product (DLP) was 681.00 mGy-cm. Findings: There is no evidence of intracranial hemorrhage, mass lesion, or acute infarct. The ventri cles and subarachnoid spaces are dilated, consistent with mild to moderate atrophy. Low attenuation regions are seen within the periventricular white matter bilaterally, likely representing changes fro m chronic microvascular ischemic disease. There is no evidence of edema, mass effect or midline shif t. The visualized paranasal sinuses and mastoid air cells are clear. Impression: No intracranial hemorrhage, mass, or acute infarct. Atrophy and chronic white matter changes, as above. Reviewed, dictated and finalized at location . Impression: No intracranial hemorrhage, mass, or acute infarct. Atrophy and chronic white matter changes, as above.
--- OUTSIDE RECORDS SUMMARY | 2025-03-06 14:38 | XMS_ITS | Clinical Summary ---
Author Organization [facility] [employer] Address [address] [place] [address] Care Team Providers Care Diesel Mechanic Name Role Phone Vincenzo East MD Primary Care Provider + Trini Carvajal MD Unavailable Unavailabl e Source Comments [facility] [employer],non-owned Affiliates and Associated Physician Practices is amultiple site organization consisting of ambulatory clinics and hospital sitesin [place], [place], [place] and [place]. This disclosure is being madepursuant to the Care Everywhere program and may not contain all information available regarding this patient. 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 Gender Identity Not on file Sexual Orientation Not on file Last Filed Vital Signs Vital Sign Reading Time Taken Comments Blood Pressure 121/53 01/02/2023 1:16 PM CDT Pulse 54 01/02/2023 1:16 PM CDT Temperature 36.3 C (97.4 F) 01/02/2023 1:16 PM CDT Respiratory Rate 18 08/20/2020 7:47 AM PAINTER AND BODY WORK Oxygen Saturation 97% 01/02/2023 1:16 PM CDT Inhaled Oxygen Concentration - - Weight 87.2 kg (192 lb 3.2 oz) 01/02/2023 1:16 P M CDT Height 188 cm (6' 2) 01/02/2023 1:16 PM CDT Body Mass Index [...] MEDICARE AWV CALENDAR YEAR 2024 INFLUENZA VACCINE (#1) 2025 06/17/2021, 2019 HEPATITIS B VACCINE Aged Out No longe [...] your medications Medical Devices Implanted Type Area Diet Assistant Device Identifier Shelf Expiration Date Model / Serial / Lot Sys Fx 37cm Cpsr Str Ss Peek Perm Hndl Implanted:Qty: 1 on 06/18/2020 by Heriberto Prado MD at [facility] Abdomen [employer] 03/17/2022 [id number] / / [id number] Bard Soft Mesh Large Pore Monofilament Poly Propylene Implanted:Qty: 1 on 06/18/2020 by Guzman Merida MD at [facility] Right: Abdomen [employer] 01/15/2025 [id number] / / [id number] Mesh Srg 6x3in Lg Pore Knit Mfl Smth Rnd Implanted:Qty: 1 on 08/04/2020 by Guzman Merida MD at [facility] Right: Abdomen [employer] 08/17/2024 [id number] / / [id number] Insurance [facility] MANAGED MEDICARE ADV [facility] MANAGED MEDICARE ADV Advance Directives * Full Code (Latest Code Status on File) Date Activated Date Inactivated Comments 06/18/2020 4:47 PM 06/19/2020 4:03 PM Care Teams Diesel Mechanic Relationship Specialty Start Date End Date Vincenzo East MD [address] [address] PCP - General 12/01/17 Trini Carvajal MD [address] [facility] [address] [facility] [address] Marketing Support Specialist Cardiology 01/01/19
--- OUTSIDE RECORDS SUMMARY | 2025-03-06 14:38 | XMS_ITS ---
Author Organization [facility] Care Team Providers Care Cone Trucker Name Role Phone Steven Arenas Unavailable Unavailable Terrance Mary Unavailable Unavailable Simi Banda Unavailable Unavailable Kavya Varghese Unavailable Unavail able XXDamián, Vesta Unavailable Unavailable Allergies and adverse reactions Code CodeSystem Substance Reaction Severity StartDate Concern Status 087360352 SNOMED CT Sulfa Antibiotics Severe 04/16/2022 active Care Team Name Role Address Phone Organization Dates Vesta XXChampt PCP [address] [place], [address], [place] (Office): : : [facility] 04/16/2022 - 04/27/2022 Steven Arenas [address], [place], [address], [place] (Office[place] : : [facility] 04/16/2022 - 04/27/2022 Terrance Mary [address], [place], [address], [place] (Office): : : [facility] 04/16/2022 - 04/27/2022 Simi Banda [address] [place], [address], [place] (Office): : : [facility] 04/16/2022 - 04/27/2022 Kavya Ann Halima [address] [place], [address], [facility] (Office): : : [facility] 04/16/2022 - 04/27/2022 Immunizations Immunization Status Vaccine Details Vaccine Code CodeSystem Nilton e Notes TB 2 Step Mantoux Skin Test completed tuberculin skin test; unspecified formulation lotNumber: [id number] expiry: 05/16/2024 Given 0.1 ml Left Forearm intradermally Step 1 of Multi-step with next step required 98 CVX created date: 04/16/2022 consent date: 04/16/2022 administere d date: 04/16/2022 Medications Section Medication Name Status Code CodeSystem Dose Route Frequency Admin Type Sig Text Start Date End Date Tylenol Tablet active 1000 mg Oral two times a day Routine Give 1000 mg orally two times a day for DX: pain 2021 - Proscar Tablet 5 MG active 279712 RXNORM 5 mg Oral one time a day Routine Give 5 mg orally one time a day for DX: BPH 2021 - Vasotec Tablet 5 MG active 927641 RXNORM 3 tablet Oral two times a day Routine Give 3 tablet orally two times a day for DX: bp 2021 - Keppra Tablet 1000 MG active 793941 RXNORM 1000 mg Oral two times a day Routine Give 1000 mg orally two times a day for DX: seizur e 2021 - Protonix Tablet Delayed Release 40 MG active 136817 RXNORM 40 mg Oral one time a day Routine Give 40 mg orally one time a day for DX: GERD 2021 - Phenytoin Sodium Extended Capsule 100 MG active 403888 RXNORM 100 mg Oral three times a day Routine Give 100 mg orally three times a day for DX: antico nvulsa nt 2021 - Zocor Tablet 20 MG active 271352 RXNORM 20 mg Oral one time a day Routine Give 20 mg orally one time a day relate d to HYPERL IPIDEM IA, UNSPEC IFIED (E78.5 ) 2021 - Flomax Capsule 0.4 MG active 443528 RXNORM 0.4 mg Oral one time a day Routine Give 0.4 mg orally one time a day relate d to BENIGN PROSTA TIC HYPERP LASIA WITHOU T LOWER URINAR Y TRACT SYMPTO MS (N40.0 ) 2021 - Lopressor Tablet 50 MG active 818246 RXNORM 50 mg Oral two times a day Routine Give 50 mg orally two times a day for DX: BP 2021 - Lidoderm Patch 5 % active 4120183 RXNORM n/a n/a Topical two times a day Routine Apply to lower back topica lly two times a day for pain 2021 - Senna-S Tablet 8.6-50 MG active 502790 RXNORM 2 tablet Oral one time a day Routine Give 2 tablet by mouth one time a day for consti pation 2021 - Tylenol Tablet active 1000 mg Oral as needed PRN Give 1000 mg orally every 24 hours as needed for DX: pain 2021 - Ultram Tablet 50 MG active 087447 RXNORM 50 mg Oral as needed PRN Give 50 mg by mouth every 8 hours as needed for for pain greate r than 6 relate d to ENCOUN TER FOR SURGIC AL AFTERC ARE FOLLOW ING SURGER Y ON THE NERVOU S SYSTEM (Z48.8 11);SYED SCHULTE C SUBDUR AL HEMORR BRIDGER WITHOU T LOSS OF CONSCI OUSNES S, SUBSEQ UENT ENCOUN TER (S06.5 X0D) MDD 3 tabs 2021 - traMADol HCl Tablet 50 MG active 495923 RXNORM 1 tablet Oral at bedtime Routine Give 1 tablet by mouth at bedtim e for Pain MDD 3 tabs 2021 - Mental Status Section Date Assessment Total Score Description 04/27/2022 BIMS 14 cognitively int act CAM 0 No delirium ind icated PHQ-9 03 minimal depress ion 04/23/2022 BIMS 14 cognitively int act CAM 0 No delirium ind icated PHQ-9 03 minimal depress ion Problems Problem # Description Date of onset Resolved Date Code CodeSystem Concern Status 1 MUSCLE WEAKNESS (GENERALIZED) 04/17/[address] active 2 NEED FOR ASSISTANCE WITH PERSONAL CARE 04/17/[address] active 3 OTHER ABNORMALITIES OF GAIT AND MOBILITY 04/17/[address] active 4 OTHER SYMPTOMS AND SIGNS INVOLVING THE MUSCULOSKELETAL SYSTEM 04/17/[address] active 5 ATHEROSCLEROTIC HEART DISEASE OF [place] CORONARY ARTERY WITHOUT ANGINA PECTORIS 04/15/[address] active 6 BENIGN PROSTATIC HYPERPLASIA WITHOUT LOWER URINARY TRACT SYMPTOMS 04/15/[address] active 7 CEREBRAL INFARCTION, UNSPECIFIED 04/15/[address] active 8 ENCOUNTER FOR SURGICAL AFTERCARE FOLLOWING SURGERY ON THE NERVOUS SYSTEM 04/15/[address] active 9 ESSENTIAL (PRIMARY) HYPERTENSION 04/15/[address] active 10 GASTRO-ESOPHAGEAL REFLUX DISEASE WITHOUT ESOPHAGITIS 04/15/[address] active 11 HYPERLIPIDEMIA, UNSPECIFIED 04/15/[address] active 12 NONTRAUMATIC INTRACRANIAL HEMORRHAGE, UNSPECIFIED 04/15/[address] active 13 OLD MYOCARDIAL INFARCTION 04/15/[address] active 14 PRESENCE OF AUTOMATIC (IMPLANTABLE) CARDIAC DEFIBRILLATOR 04/15/[address] active 15 PRIMARY GENERALIZED (OSTEO)ARTHRITIS 04/15/[address] active 16 SUPRAVENTRICULAR TACHYCARDIA 04/15/[address] active 17 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, SUBSEQUENT ENCOUNTER 04/15/[address] active Reason for Referral No Reasons for Referral Entered Social History Social History Observation Description Start Date End Date Code Code System Current Smoking Status Tobacco smoking consumption unknown 457171620 SNOMED CT Sex Assigned At Male 1940 98989-6 [facility] Gender Identity Vital Signs Code Code System Vitals Name Values and Units Timing Information 9279-1 [facility] Respiratory Rate Value=18.0 Units=/m in 04/27/2022 8462-4 [facility] Blood Pressure-Diastolic Value=70 Un its=mmHg 04/27/2022 8480-6 [facility] Blood Pressure-Systolic Xwjaq=255 Un its=mmHg 04/27/2022 8310-5 [facility] Body Temperature Value=96.9 Units= F 04/27/2022 8867-4 [facility] Heart rate Value=76.0 Units=/min 02/2022 18971-0 [facility] O2 % BldC Oximetry Value=94.0 Units= % 04/27/2022 92873-9 [facility] Pain Level Value=3.0 04/27/2022 10896-9 [facility] Weight Weyep=001.1 Units=Lbs 01/2022 8302-2 [facility] Height Value=71.0 Units=Inches 04/20/2022
--- OUTSIDE RECORDS SUMMARY | 2025-03-06 14:39 | XMS_ITS | Clinical Summary ---
Author Organization [facility] D Address [address] [place] [address] Care Team Providers Care Actuarial Science Professor Name Role Phone Vincenzo East MD Primary [...] obtain echo Doppler after his return from [place] to be sure that there has been no structural cardiac change which may have precipitated his arrhythmia. 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 He has a defibrillator. Assessment & Plan (07/04/2019 6:16 PM RAT CULTURIST): Asymptomatic. No recent recurrence. Assessment & Plan (12/31/2018 12:26 PM CDT): Normally functioning defibrillator. He is followed at [facility] for his arrhythmia. Belching 12/07/2018 Gastroesophageal reflux [...] patient is status post defibrillator placement for tatyana-NM ventricular fibrillation in 1997. Recently, he experienced [...] recommended. Assessment & Plan (07/04/2019 6:16 PM RAT CULTURIST): Followed through [facility]. Functioning normally. Assessment & Plan (07/02/2018 11:27 AM RAT CULTURIST): Monitored at [facility]. Assessment & Plan (01/01/2018 12:01 PM CDT): Up-to-date with follow-up through [facility]. Coronary artery disease of n ative artery of [place] heart with stable angina pectoris ([facility]) 07/03/2017 Assessment & Plan (06/19/2024 10:25 AM [...] complications. Assessment & Plan (07/04/2019 6:14 PM RAT CULTURIST): No symptoms of myocardial ischemia. It has been over three years since his last myocardial perfusion study, and I have recommended that this be repeated prior to his upcoming hiatal hernia surgery. Continue aspirin. Assessment & Plan (12/31/2018 12:25 PM CDT): No symptoms of myocardial ischemia. Continue aspirin and metoprolol. Assessment & Plan (07/02/2018 11:26 AM RAT CULTURIST): No symptoms of myocardial ischemia. Continue aspirin. Assessment & Plan (01/01/2018 12:00 PM CDT): No symptoms of myocardial ischemia. Continue aspirin Assessment & Plan (07/03/2017 12:00 PM RAT CULTURIST): Asymptomatic. Continue ASA and beta khushi tx. [...] made. Assessment & Plan (07/04/2019 6:15 PM RAT CULTURIST): On chronic lipid lowering therapy with good control. No changes made. Assessment & Plan (12/31/2018 12:25 PM CDT): On chronic lipid lowering therapy with good control. No changes made. Assessment & Plan (07/02/2018 11:27 AM RAT CULTURIST): On chronic lipid lowering therapy with good control. No changes made. Because of his high HDL, LDL cannot be calculated, but is definitely less than 83. Assessment & Plan (01/01/2018 12:00 PM CDT): On chronic lipid lowering therapy with good control. No changes made. Assessment & Plan (07/03/2017 12:01 PM RAT CULTURIST): LDL could not be calculated because of [...] made. Assessment & Plan (07/04/2019 6:15 PM RAT CULTURIST): Blood pressure is adequately controlled on current regimen. No change was made. Assessment & Plan (12/31/2018 12:26 PM CDT): Blood pressure is adequately controlled on current regimen. No change was made. Assessment & Plan (07/02/2018 11:26 AM RAT CULTURIST): Blood pressure is adequately controlled on current regimen. No change was made. Assessment & Plan (01/01/2018 12:00 PM CDT): Blood pressure is adequately controlled on current regimen. No change was made. Assessment & Plan (07/03/2017 12:06 PM RAT CULTURIST): Blood pressure is adequately controlled on current [...] PM CDT Hospital Encounter [facility] [address] [place] [phone] Bilateral hip pain; Aftercare following bilateral hip joint replacement surgery Discharge Disposition: Discharge to home or self care 12/09/2024 11:10 AM CDT Office Visit [facility] Orthopaedic Surgery [address] Medical [address] [place] [address] Gautam Bain MD Bilateral hip [...] Med[employer]onic Virtuoso V /ICD implanted 08/19/2008 for ICM/OG-Dndwpozh-Wfyw. PATIENTS ICD IS FOLLOWED AT [facility] Hiatal [...] on file Legal Sex Male 9:13 PM RAT CULTURIST Gender Identity Not on file Sexual Orientation [...] 9:40 AM CDT Height 180.3 cm (5' 11) 06/19/2024 9:40 AM CDT Body Mass Index [...] Vaccine (1 - Tdap) 10/21/2024 Influenza Vaccine (#1) 2025 , 06/17/2021, 04/24/2020 Procedures Procedure Name Priority Date/Time [...] Resul t from Last 3 Months Insurance [facility] Address: [address] [address] [place] [address] [employer] MEDICARE ADVANTAGE [facility] Address: [address] [address] [place] [address] [employer]HC MEDICARE ADVANTAGE [facility] Address: [address] [address] [place] [address] Care Teams Actuarial Science Professor Relationship Specialty Start Date End Date Vincenzo East MD [address] [place] [address] PCP - General 07/02/13
--- OUTSIDE RECORDS SUMMARY | 2025-03-06 14:39 | XMS_ITS ---
Author Organization [facility] Address [address] [place], [place] [address] Care Team Providers Care Floor Assembler Name Role Phone Yareli ABRAMS, Ashley Primary Care Provider Unavailable Chris Barth Unavailable [phone] Alonso Sequeira [phone] REASON FOR VISIT 1yr audio Encounters Encounter Location Date Provider Diagnosis [facility] [address] [place], [place] [address] 10/18/2023 Alonso Sequeira Plan Of Treatment No Information Progress Notes * Antoni MCCORMICKDOB:1940 (84 yo M)Acc No.[id number]:10/18/2023 Audiogram Patient: Antoni MCFARLANE J Provider: Rosa SHEIKH :1940 A ge:83 Y S ex:Male Date:10/18/2023 Address[address] Pcp:Claudy Alcocer Subjective: * Chief Complaints: * 1 . 1yr audio. * Medical History: Objective: * Vitals: * Physical Examination: Assessment: Plan: * Treatment: * Billing Information: * Visit Code: * Procedure Codes: * Electronic signature of Rosa Pittman on 03/06/2025 at 03:38 PM EDT Sign off status: Pending * Provider: Rosa SHEIKH Date: 0 10/18/2023 Generated for Printi ng/Fazog/eTransmitting on: 0 03/06/2025 03:38 PM EDT
--- OUTSIDE RECORDS SUMMARY | 2025-03-06 14:39 | XMS_ITS | Referral Summary ---
Author Organization [facility] D Address [address] [place] [address] Care Team Providers Care Food Processing Chemist Name Role Phone Vincenzo East MD Primary Care Prov ider Encounters Date Type Department Care Team Description 12/09/2024 11:41 AM CDT - 12/09/2024 11:59 PM CDT Hospital Encounter [facility] [address] [place] [address] [address] [place] [phone] Bilateral hip pain; Aftercare following bilateral hip joint replacement surgery Discharge Disposition: Discharge to home or self care 12/09/2024 11:10 AM CDT Office Visit [facility] Orthopaedic Surgery [address] [place] [address] Medical Office Building [address] [place] [address] Gautam Bain MD Bilateral hip [...] obtain echo Doppler after his return from [place] to be sure that there has been no structural cardiac change which may have precipitated his arrhythmia. 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 He has a defibrillator. Assessment & Plan (07/04/2019 6:16 PM SPECIAL FORCES COMMUNICATIONS SERGEANT): Asymptomatic. No recent recurrence. Assessment & Plan (12/31/2018 12:26 PM CDT): Normally functioning defibrillator. He is followed at [facility] for his arrhythmia. 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 Recently, he experienced [...] recommended. Assessment & Plan (07/04/2019 6:16 PM SPECIAL FORCES COMMUNICATIONS SERGEANT): Followed through [facility]. Functioning normally. Assessment & Plan (07/02/2018 11:27 AM SPECIAL FORCES COMMUNICATIONS SERGEANT): Monitored at [facility]. Assessment & Plan (01/01/2018 12:01 PM CDT): Up-to-date with follow-up through [facility]. Coronary artery disease of n ative artery of [place] heart with stable angina pectoris ([facility]) 07/03/2017 Assessment & Plan (06/19/2024 10:25 AM [...] complications. Assessment & Plan (07/04/2019 6:14 PM SPECIAL FORCES COMMUNICATIONS SERGEANT): No symptoms of myocardial ischemia. It has been over three years since his last myocardial perfusion study, and I have recommended that this be repeated prior to his upcoming hiatal hernia surgery. Continue aspirin. Assessment & Plan (12/31/2018 12:25 PM CDT): No symptoms of myocardial ischemia. Continue aspirin and metoprolol. Assessment & Plan (07/02/2018 11:26 AM SPECIAL FORCES COMMUNICATIONS SERGEANT): No symptoms of myocardial ischemia. Continue aspirin. Assessment & Plan (01/01/2018 12:00 PM CDT): No symptoms of myocardial ischemia. Continue aspirin Assessment & Plan (07/03/2017 12:00 PM SPECIAL FORCES COMMUNICATIONS SERGEANT): Asymptomatic. Continue ASA and beta khushi tx. [...] made. Assessment & Plan (07/04/2019 6:15 PM SPECIAL FORCES COMMUNICATIONS SERGEANT): On chronic lipid lowering therapy with good control. No changes made. Assessment & Plan (12/31/2018 12:25 PM CDT): On chronic lipid lowering therapy with good control. No changes made. Assessment & Plan (07/02/2018 11:27 AM SPECIAL FORCES COMMUNICATIONS SERGEANT): On chronic lipid lowering therapy with good control. No changes made. Because of his high HDL, LDL cannot be calculated, but is definitely less than 83. Assessment & Plan (01/01/2018 12:00 PM CDT): On chronic lipid lowering therapy with good control. No changes made. Assessment & Plan (07/03/2017 12:01 PM SPECIAL FORCES COMMUNICATIONS SERGEANT): LDL could not be calculated because of [...] made. Assessment & Plan (07/04/2019 6:15 PM SPECIAL FORCES COMMUNICATIONS SERGEANT): Blood pressure is adequately controlled on current regimen. No change was made. Assessment & Plan (12/31/2018 12:26 PM CDT): Blood pressure is adequately controlled on current regimen. No change was made. Assessment & Plan (07/02/2018 11:26 AM SPECIAL FORCES COMMUNICATIONS SERGEANT): Blood pressure is adequately controlled on current regimen. No change was made. Assessment & Plan (01/01/2018 12:00 PM CDT): Blood pressure is adequately controlled on current regimen. No change was made. Assessment & Plan (07/03/2017 12:06 PM SPECIAL FORCES COMMUNICATIONS SERGEANT): Blood pressure is adequately controlled on current [...] on file Legal Sex Male 9:13 PM SPECIAL FORCES COMMUNICATIONS SERGEANT Gender Identity Not on file Sexual Orientation [...] Last 3 Months Insurance UHC MEDICARE ADVANTAGE [facility] MEDICARE ADVANTAGE Care Teams Food Processing Chemist Relationship Specialty Start Date End Date Vincenzo East MD [address] [place] [address] PCP - General 07/02/13
--- OUTSIDE RECORDS SUMMARY | 2025-03-06 14:39 | XMS_ITS | Patient Health Record ---
Author Organization [facility] Address [address] [place], [place] [address] Care Team Providers Care Golf Course Laborer Name Role Phone Ashley Downs MD Primary Care Provider Unavailable Chris Barth Unavailable [phone] Allergies Allergen (clinical drug ingredient) Drug/Non Drug Allergy documented on EMR Reaction Allergy Type Onset Date Status No Known Drug Allergy Unknown Drug Allergy Active Reason For Referral No Information Medications Medication SIG (Take, Route, Fr equency, Duration) [...] 1 capsule Orally Once a day Active Social History Tobacco Use: Social History Observation Description Date Details (start date - stop date) Unknown Tobacco Use/Smoking Question Answer Notes Tobacco use: Uses tobacco in other forms Tobacco use other than smoking: Question Answer Notes Are you an other tobacco user? 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 [address] [place] [address] [id number] Antoni Mccormick Self - patient is the insured Medical (General) History Medical History History ICD Code Stroke Seizure Hypertension Heart Attack Surgical History Surgery Date(Month/Year) Pacemaker Heart Stent Hip Replacement
--- OUTSIDE RECORDS SUMMARY | 2025-03-06 14:39 | XMS_ITS | Clinical Summary ---
Author Organization [facility] Address [address] [place] [address] Care Team Providers Care Staff Interpreter Name Role Phone Unavailable Primary Care Provider [...]
== END 2025-03-06 14:27 | disposition home or self-care (01) ==
PROVIDERS: PCP Family Medicine Adolescent Medicine; Visit Provider Family Medicine Adolescent Medicine
DX: R41.82 Altered mental status, unspecified (principal); Z86.79 Personal history of other diseases of the circulatory system; F06.8 Other specified mental disorders due to known physiological condition; S06.9X0S Unspecified intracranial injury without loss of consciousness, sequela; R41.3 Other amnesia
CPT/HCPCS: 70450

== ENCOUNTER 2025-05-05 13:39 | Emergency (ER) | payer MEDICARE, SELFPAY ==
[2025-05-05 13:45] VITALS: BP 127/69; PULSE 57; RESP 19; TEMP 35.7; O2SAT 97
--- NOTE | 2025-05-05 14:47 | ED.EXTPRO ---
HPI - Extremity Problem General Chief complaint: Extremity Problem,Nontraumatic Stated complaint: R Leg Pain Time Seen by Provider: 05/05/25 14:30 Source: patient and RN notes reviewed Mode of arrival: ambulatory Limitations: no limitations History of Present Illness HPI Narrative: 85-year-old male presents Express Care complaining of right leg pain. Patient reports pain to his right mid calf extend his right mid thigh for last 2 days. Patient denies any injuries to his leg. He has a 2 days ago he was playing poker and was sitting in a chair for long period of time he states. Patient does not take any blood thinners. Also reports swelling to his right leg. Patient has any chest pain, shortness of breath, dizziness, lightheadedness, headaches, or any other symptoms. Patient denies any history of blood clots or any recent surgeries. Related Data Allergies Allergy/AdvReac Type Severity Reaction Status Date / Time shellfish derived AdvReac Severe Vomiting Verified 05/05/25 13:57 Review of Systems Review of Systems: CONSTITUTIONAL: Denies fever, chills, or sweats. EYES: Denies visual changes, redness, or discharge. ENT: Denies rhinorrhea, congestion, sore throat, or otalgia. CARDIOVASCULAR: Denies chest pain, palpitations, or edema. RESPIRATORY: Denies cough or dyspnea. GASTROINTESTINAL: Denies abdominal pain, nausea, vomiting, or diarrhea. GENITOURINARY: Denies dysuria or hematuria. SKIN: Denies rash or itching. MUSCULOSKELETAL: Denies back pain, joint pain, or myalgia. Positive for leg pain and swelling. NEUROLOGIC: Denies headache, numbness, or weakness. PSYCHIATRIC: Denies anxiety or depression. All other systems reviewed are negative, except as documented in HPI. FORMERLY [facility], [facility]–1983 Past Medical History Medical History Alcoholism Abnormal colonoscopy 08/07 polyp Repeat 08/12 History of atrial fibrillation 1997 History of rheumatic fever Surgical History Surgical History History of vein stripping Family History Family History Father Heart disease Social History Social History (Reviewed 05/05/25 @ 14:48 by OFE Bartlett Smoking status: Former smoker Tobacco type: cigars Second hand tobacco smoke exposure: No Smoking end date: 02/18/19 Additional smoking assessment comments: SMOKED 1 CIGAR/DAY X 10 YRS Alcohol intake: current Drinks per week: 7 Alcohol use details: A glass of wine daily Substance use: never Substance use type: does not use Lack of Transportation: No Lack of Food: Never True Current Housing: I Have Housing Concerned About Future Housing: No Difficulty Paying Gas/Electric Bills: No Difficulty Paying for Meds: No Currently Unemployed: No Education: Master's Degree or Higher Difficulty w/ Childcare or Family Care: No Living arrangements: with family Additional living arrangements comments: Occupation/Education: 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 There is no relevant family history pertinent to the patient complaint. Exam Narrative: GENERAL: This is a well-nourished, well-developed adult, in no apparent distress. They are non ill-appearing, nontoxic appearing. HEAD: normocephalic, atraumatic. EYES: Sclera clear/white. Conjunctiva normal. Vision is grossly intact. Extraocular movements intact EARS: External ears normal, Hearing grossly intact. NOSE: External nose normal THROAT: Mucous membranes moist, NECK: Neck supple, CARDIOVASCULAR: Regular rate and rhythm RESPIRATORY: Respiratory rate normal, respiratory effort nonlabored, no respiratory distress i. SKIN: warm, Dry, intact with no suspicious lesions or rash, good texture and turgor. NEURO: awake, alert, and oriented to person, place and time. There were no obvious focal neurologic abnormalities. EXTREMITIES: Right lower extremity: Edematous compared to the left lower extremity. Is tender to palpate behind the right calf up into the right posterior thigh. No palpable cord. No redness, bruising, or bony tenderness. Capillary refill less than 2 seconds. Neurovascular status intact distally. Normal sensation. Course Course Emergency Course: Portions of this record may have been created with voice recognition software Level of Care: Express Care Visit Vital Signs Vital signs: Vital Signs Temperature 96.3 F L 05/05/25 13:45 Pulse Rate 57 L 05/05/25 13:45 Respiratory Rate 19 05/05/25 13:45 Blood Pressure 127/69 05/05/25 13:45 Pulse Oximetry 97 05/05/25 13:45 Oxygen Delivery Room Air 05/05/25 13:45 Temperature 96.3 F L 05/05/25 13:45 Pulse Rate 57 L 05/05/25 13:45 Respiratory Rate 19 05/05/25 13:45 Blood Pressure 127/69 05/05/25 13:45 Pulse Oximetry 97 05/05/25 13:45 Oxygen Delivery Room Air 05/05/25 13:45 Reviewed Transfer Transfered to: [facility]: Other (Private vehicle) Transfer rationale: Patient requires higher level care, rule out blood clot, requires ultrasound imaging Accepting physician: Dr. Cheung MDM - Extremity (Nontraumatic) MDM Narrative Medical decision making narrative: Wells score 1. Cannot exclude deep vein thrombosis. Given patient's symptoms, it is recommend the patient seek a higher level care and proceed immediately to the emergency department. Patient is agreeable to go to [facility]. Alert [facility] and spoke to Dr. Cheung who is aware this patient accepted the patient for transfer. Patient advised to remain NPO proceed immediately to the ER. Patient's will drive him to the hospital via private vehicle. Differential Diagnosis Differential diagnosis: Likely lower extremity edema, deep vein thrombosis of lower extremity and other (Leg sprain, knee sprain, bursitis) Critical Care Time Critical Care Time Critical Care Time: No Discharge Plan Discharge Clinical Impression: Pain in right leg Patient Disposition: Acute Care Hospital Condition: Stable Patient Language: Citizen Of [place] Prescriptions: No Action donepezil [Aricept] 10 mg tablet 10 mg PO DAILY Qty: 90 4RF Rx Instructions: daily morning enalapril maleate 5 mg tablet See Rx Instructions .ROUTE .COMPLEX Qty: 540 3RF Dose Instruction: TAKE 3 TABLETS BY MOUTH TWICE DAILY Rx Instructions: TAKE 3 TABLETS BY MOUTH TWICE DAILY levetiracetam 500 mg tablet 1,000 mg PO BID Qty: 180 4RF memantine 10 mg tablet 10 mg PO BID Qty: 180 4RF metoprolol tartrate 50 mg tablet 50 mg PO BID Qty: 180 3RF simvastatin 20 mg tablet 20 mg PO DAILY Qty: 90 3RF tamsulosin 0.4 mg capsule 0.4 mg PO DAILY Qty: 90 3RF ipratropium bromide 42 mcg (0.06 %) spray,non-aerosol 2 spray intranasal TID Qty: 15 5RF Rx Instructions: administer into each nostril finasteride 5 mg tablet 5 mg PO DAILY Qty: 100 3RF escitalopram oxalate 10 mg tablet 10 mg PO DAILY Qty: 30 5RF furosemide [Lasix] 20 mg tablet 20 mg PO QAM PRN (Reason: edema) Qty: 20 0RF Follow-up/Referrals: Vincenzo East MD [Primary Care Provider, Family Practice] Time of Disposition: 14:39
== END 2025-05-05 14:45 | disposition short-term general hospital (02) ==
PROVIDERS: PCP Family Medicine Adolescent Medicine
DX: M79.661 Pain in right lower leg (principal); M79.651 Pain in right thigh; Z87.891 Personal history of nicotine dependence; I48.91 Unspecified atrial fibrillation
CPT/HCPCS: 99212; 99213; G0463

== ENCOUNTER 2025-05-05 15:08 | Emergency (ER) | payer MEDICARE, SELFPAY ==
--- NOTE | ~2025-05-05 | US_ITS ---
EXAMINATION: US venous doppler LE RT DATE: 05/05/2025 17:16 INDICATION: Right lower limb pain. TECHNIQUE: Grayscale ultrasound images without and with compression and Doppler ultrasound images of the right lower extremity veins were obtained. COMPARISON: None. FINDINGS: The visualized portions of right common femoral vein, profunda (deep) femoral vein, femoral vein, popliteal vein, posterior tibial veins, and greater saphenous vein outflow are patent. IMPRESSION: 1. No deep venous thrombosis. Reviewed, dictated and finalized at location K.
[2025-05-05 15:12] VITALS: BP 144/49; PULSE 58; RESP 18; TEMP 36.3; O2SAT 96
[2025-05-05] MEDS: HYDROcodone/acetaminophen (*CRX) 5-325 MG TABLET 1 TAB PO (17:09)
--- NOTE | 2025-05-05 17:37 | ED.EXTPRO ---
HPI - Extremity Problem General Chief complaint: Extremity Problem,Nontraumatic Stated complaint: right leg swelling Time Seen by Provider: 05/05/25 15:48 History of Present Illness HPI Narrative: Patient is an 85-year-old male who presents to the ER with pain to the lower extremity. Right-side. Behind the knee. Reports he was at a poker game over the weekend and then took a new bur home and developed pain behind the leg. He wears compression stockings. No new swelling. He is concerned he may have a DVT. No chest pain or shortness of breath. No known trauma. Related Data Allergies Allergy/AdvReac Type Severity Reaction Status Date / Time shellfish derived AdvReac Severe Vomiting Verified 05/05/25 15:15 Review of Systems Constitutional: Constitutional: Reports no additional constitutional complaints Cardiovascular: Cardiovascular: Reports no additional cardiovascular complaints Musculoskeletal: Musculoskeletal: Reports no additional musculoskeletal complaints PMFSH Past Medical History Medical History Alcoholism Abnormal colonoscopy 08/07 polyp Repeat 08/12 History of atrial fibrillation 1998 History of rheumatic fever Surgical History Surgical History History of vein stripping Family History Family History Father Heart disease Social History Social History Smoking status: Former smoker Tobacco type: cigars Second hand tobacco smoke exposure: No Smoking end date: 02/18/19 Additional smoking assessment comments: SMOKED 1 CIGAR/DAY X 10 YRS Alcohol intake: current Drinks per week: 7 Alcohol use details: A glass of wine daily Substance use: never Substance use type: does not use Lack of Transportation: No Lack of Food: Never True Current Housing: I Have Housing Concerned About Future Housing: No Difficulty Paying Gas/Electric Bills: No Difficulty Paying for Meds: No Currently Unemployed: No Education: Master's Degree or Higher Difficulty w/ Childcare or Family Care: No Living arrangements: with family Additional living arrangements comments: Occupation/Education: 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 HEAD: Normocephalic, atraumatic. ENT: Mucous membranes moist. CHEST: Clear to auscultation. No respiratory distress. HEART: Regular rate and rhythm. Normal peripheral pulses. EXTREMITIES: Normal range of motion. No edema. Negative Homans sign on the right side. No distended leg veins. SKIN: Warm, dry, no rash. NEURO: Alert and oriented x3. PSYCH: Normal mood and affect. Course Course Emergency Course: No DVT. Pain felt to be musculoskeletal. Discussed conservative management with anti-inflammatories and Tylenol. Vital Signs Vital signs: Vital Signs Temperature 97.4 F L 05/05/25 15:12 Pulse Rate 58 L 05/05/25 15:12 Respiratory Rate 18 05/05/25 15:12 Blood Pressure 144/49 H 05/05/25 15:12 Pulse Oximetry 96 05/05/25 15:12 Oxygen Delivery Room Air 05/05/25 15:12 Temperature 97.4 F L 05/05/25 15:12 Pulse Rate 58 L 05/05/25 15:12 Respiratory Rate 18 05/05/25 15:12 Blood Pressure 144/49 H 05/05/25 15:12 Pulse Oximetry 96 05/05/25 15:12 Oxygen Delivery Room Air 05/05/25 15:12 MDM - Extremity (Nontraumatic) Imaging Data Radiologist's impression: ITS Impressions Venous Doppler Study 05/05/25 17:23 IMPRESSION: 1. No deep venous thrombosis. Discharge Plan Discharge Clinical Impression: Leg pain Patient Disposition: Home Condition: Stable Instructions: Leg Pain (ED) Additional Instructions: Your evaluation did not demonstrate any DVT. It is recommended you take Tylenol and ibuprofen for pain. You may do stretches to help alleviate discomfort in the back of your leg you may also give herself some targeted massage. Return the ER if you develop swelling in your leg, you have chest pain with shortness of breath, or you develop additional concerns. Patient Language: Congolese Prescriptions: No Action donepezil [Aricept] 10 mg tablet 10 mg PO DAILY Qty: 90 4RF Rx Instructions: daily morning enalapril maleate 5 mg tablet See Rx Instructions .ROUTE .COMPLEX Qty: 540 3RF Dose Instruction: TAKE 3 TABLETS BY MOUTH TWICE DAILY Rx Instructions: TAKE 3 TABLETS BY MOUTH TWICE DAILY levetiracetam 500 mg tablet 1,000 mg PO BID Qty: 180 4RF memantine 10 mg tablet 10 mg PO BID Qty: 180 4RF metoprolol tartrate 50 mg tablet 50 mg PO BID Qty: 180 3RF simvastatin 20 mg tablet 20 mg PO DAILY Qty: 90 3RF tamsulosin 0.4 mg capsule 0.4 mg PO DAILY Qty: 90 3RF ipratropium bromide 42 mcg (0.06 %) spray,non-aerosol 2 spray intranasal TID Qty: 15 5RF Rx Instructions: administer into each nostril finasteride 5 mg tablet 5 mg PO DAILY Qty: 100 3RF escitalopram oxalate 10 mg tablet 10 mg PO DAILY Qty: 30 5RF furosemide [Lasix] 20 mg tablet 20 mg PO QAM PRN (Reason: edema) Qty: 20 0RF Follow-up/Referrals: Vincenzo East MD [Primary Care Provider, Family Practice] - 1 Week
--- NOTE | 2025-05-05 17:52 | PC.NURSE ---
Dr. Iyer at bedside discussing d/c instructions with pt.
[2025-05-05 18:01] VITALS: BP 145/83; PULSE 52; RESP 16; TEMP 36.3; O2SAT 95
--- OUTSIDE RECORDS SUMMARY | 2025-05-05 18:02 | XMS_ITS | Clinical Summary ---
Author Organization [facility] Address [address] [place] [id number] Care Team Providers Care Carbon Paper Machine Operator Name Role Phone Unavailable Primary Care Provider [...] - 1-dose 75+ series) 2016 COVID-19 Vaccine (1 - 2023-2 5 season) 2025 Meningococcal B Vaccine Aged Out No l onger eligible based on patient's age to complete this topic Meningococcal Vaccine Aged Out No zak hussein eligible based on patient's age to complete this topic RSV Immunizations Under 20 Months Aged Out No longer eligible based on patient's age to complete this topic
--- OUTSIDE RECORDS SUMMARY | 2025-05-05 18:02 | XMS_ITS | Clinical Summary ---
Author Organization [facility] Address [address] [place] [id number] Care Team Providers Care Box Spring Maker Name Role Phone Vincenzo East MD Primary [...] obtain echo Doppler after his return from [place] to be sure that there has been no structural cardiac change which may have precipitated his arrhythmia. Ventricular fibrillation 12/31/2018 Assessment & Plan (05/08/2020 5:08 PM CDT): Followed through [facility]. He has a defibrillator. Assessment & Plan (07/04/2019 6:16 PM DUMP MOTORMAN): Asymptomatic. No recent recurrence. Assessment & Plan (12/31/2018 12:26 PM CDT): Normally functioning defibrillator. He is followed at [facility] for his arrhythmia. Belching 12/07/2018 Gastroesophageal [...] recommended. Assessment & Plan (07/04/2019 6:16 PM DUMP MOTORMAN): Followed through [facility]. Functioning normally. Assessment & Plan (07/02/2018 11:27 AM DUMP MOTORMAN): Monitored at [facility]. Assessment & Plan (01/01/2018 12:01 PM CDT): Up-to-date with follow[facility]up through [facility]. Coronary artery disease of n ative artery of [place] heart with stable angina pectoris ([facility]) 07/03/2017 Assessment & Plan (06/19/2024 [...] complications. Assessment & Plan (07/04/2019 6:14 PM DUMP MOTORMAN): No symptoms of myocardial ischemia. It has been over three years since his last myocardial perfusion study, and I have recommended that this be repeated prior to his upcoming hiatal hernia surgery. Continue aspirin. Assessment & Plan (12/31/2018 12:25 PM CDT): No symptoms of myocardial ischemia. Continue aspirin and metoprolol. Assessment & Plan (07/02/2018 11:26 AM DUMP MOTORMAN): No symptoms of myocardial ischemia. Continue aspirin. Assessment & Plan (01/01/2018 12:00 PM CDT): No symptoms of myocardial ischemia. Continue aspirin Assessment & Plan (07/03/2017 12:00 PM DUMP MOTORMAN): Asymptomatic. Continue ASA and beta khushi tx. [...] made. Assessment & Plan (07/04/2019 6:15 PM DUMP MOTORMAN): On chronic lipid lowering therapy with good control. No changes made. Assessment & Plan (12/31/2018 12:25 PM CDT): On chronic lipid lowering therapy with good control. No changes made. Assessment & Plan (07/02/2018 11:27 AM DUMP MOTORMAN): On chronic lipid lowering therapy with good control. No changes made. Because of his high HDL, LDL cannot be calculated, but is definitely less than 83. Assessment & Plan (01/01/2018 12:00 PM CDT): On chronic lipid lowering therapy with good control. No changes made. Assessment & Plan (07/03/2017 12:01 PM DUMP MOTORMAN): LDL could not be calculated because of [...] made. Assessment & Plan (07/04/2019 6:15 PM DUMP MOTORMAN): Blood pressure is adequately controlled on current regimen. No change was made. Assessment & Plan (12/31/2018 12:26 PM CDT): Blood pressure is adequately controlled on current regimen. No change was made. Assessment & Plan (07/02/2018 11:26 AM DUMP MOTORMAN): Blood pressure is adequately controlled on current regimen. No change was made. Assessment & Plan (01/01/2018 12:00 PM CDT): Blood pressure is adequately controlled on current regimen. No change was made. 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 PATIENTS ICD IS FOLLOWED AT [facility] Hiatal hernia GERD (gastroesophageal reflux disease) Gastric [...] on file Legal Sex Male 9:13 PM DUMP MOTORMAN Gender Identity Not on file Sexual Orientation [...] of 2) 1991 Well Visit 65+ 2006 DTaP/Tdap/Td Vaccine (1 - Tdap) 10/21/2024 Covid-19 Vaccine (5 - 2024-2 6 season) 2025 06/17/2021, 06/17/2021, 11/04/2020, Additional history exists Influenza Vaccine (#1) 2025 , 06/17/2021, 04/24/2020 Insurance [facility] MEDICARE ADVANTAGE [facility] MEDICARE ADVANTAGE [facility] MEDICARE ADVANTAGE Care Teams Box Spring Maker Relationship Specialty Start Date End Date Vincenzo East MD PCP - General 07/02/13
--- OUTSIDE RECORDS SUMMARY | 2025-05-05 18:02 | XMS_ITS | Patient Health Record ---
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 [address] [place] [address] [id number] Antoni Mccormick Self - patient is the insured Medical (General) History Medical History History ICD Code Stroke Seizure Hypertension Heart Attack Surgical History Surgery Date(Month/Year) Pacemaker Heart Stent Hip Replacement
--- OUTSIDE RECORDS SUMMARY | 2025-05-05 18:02 | XMS_ITS | Clinical Summary ---
Author Organization [facility] [employer] Address [address] [place] [address] Care Team Providers Care Teacher Of The Emotionally Disturbed Name Role Phone Vincenzo East MD Primary Care Provider + Trini Carvajal MD Unavailable Unavailabl e Source Comments [facility] [employer],non-owned Affiliates and Associated Physician Practices is amultiple site organization consisting of ambulatory clinics and hospital sitesin [place], [place], [place] and [place]. This disclosure is being madepursuant to the Care Everywhere program and may not contain all information available regarding this patient. 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 Gender Identity Not on file Sexual Orientation Not on file Last Filed Vital Signs Vital Sign Reading Time Taken Comments Blood Pressure 121/53 01/02/2023 1:16 PM CDT Pulse 54 01/02/2023 1:16 PM CDT Temperature 36.3 C (97.4 F) 01/02/2023 1:16 PM CDT Respiratory Rate 18 08/20/2020 7:47 AM GENERAL LABORER Oxygen Saturation 97% 01/02/2023 1:16 PM CDT [...] yrs (1 - 1-dose 75+ series) 2016 DEPRESSION SCREENING 08/21/2024 MEDICARE AWV CALENDAR YEAR 2024 COVID-19 VACCINE ( season) 2025 06/17/2021, 06/17/2021, 11/04/2020, Additional history exists INFLUENZA VACCINE (#1) 2025 06/17/2021, 2019 HEPATITIS [...] your medications Medical Devices Implanted Type Area Reinforced Steel Placing Supervisor Device Identifier Shelf Expiration Date Model / Serial / Lot Sys Fx 37cm Cpsr Str Ss Peek Perm Hndl Implanted:Qty: 1 on 06/18/2020 by Heriberto Prado MD at [facility] Abdomen [employer] 03/17/2022 [id number] / / [id number] Bard Soft Mesh Large Pore Monofilament Poly Propylene Implanted:Qty: 1 on 06/18/2020 by Guzman Merida MD at [facility] Right: Abdomen [employer] 01/15/2025 [id number] / / [id number] Mesh Srg 6x3in Lg Pore Knit Mfl Smth Rnd Implanted:Qty: 1 on 08/04/2020 by Guzman Merida MD at [facility] Right: Abdomen [employer] 08/17/2024 [id number] / / [id number] Insurance [facility] MA[facility]GED MEDICARE ADV [facility] MANAGED MEDICARE ADV Advance Directives * Full Code (Latest Code Status on File) Date Activated Date Inactivated Comments 06/18/2020 4:47 PM 06/19/2020 4:03 PM Care Teams Teacher Of The Emotionally Disturbed Relationship Specialty Start Date End Date Vincenzo East MD [address] [address] PCP - General 12/01/17 Trini Carvajal MD [address] [address] Communications Clerk Cardiology 01/01/19
--- OUTSIDE RECORDS SUMMARY | 2025-05-05 18:38 | XMS_ITS | Clinical Summary ---
[facility] Organization [facility] Address [address] [place] [id number] Care Team Providers Care Electrician Substation Supervisor Name Role Phone Vincenzo East MD Primary [...] Plan (05/08/2020 5:08 PM CDT): Followed through [facility]. He has a defibrillator. Assessment & Plan (07/04/2019 6:16 PM SUBSTATION SUPERVISOR): Asymptomatic. No recent recurrence. Assessment & Plan (12/31/2018 12:26 PM CDT): Normally functioning defibrillator. He is followed at [facility] for his arrhythmia. 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 Recently, he experienced [...] recommended. Assessment & Plan (07/04/2019 6:16 PM SUBSTATION SUPERVISOR): Followed through [facility]. Functioning normally. Assessment & Plan (07/02/2018 11:27 AM SUBSTATION SUPERVISOR): Monitored at [facility]. Assessment & Plan (01/01/2018 12:01 PM CDT): Up-to-date with follow-up through [facility]. 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 Assessment & Plan (07/04/2019 6:14 PM SUBSTATION SUPERVISOR): No symptoms of myocardial ischemia. It has been over three years since his last myocardial perfusion study, and I have recommended that this be repeated prior to his upcoming hiatal hernia surgery. Continue aspirin. Assessment & Plan (12/31/2018 12:25 PM CDT): No symptoms of myocardial ischemia. Continue aspirin and metoprolol. Assessment & Plan (07/02/2018 11:26 AM SUBSTATION SUPERVISOR): No symptoms of myocardial ischemia. Continue aspirin. Assessment & Plan (01/01/2018 12:00 PM CDT): No symptoms of myocardial ischemia. Continue aspirin Assessment & Plan (07/03/2017 12:00 PM SUBSTATION SUPERVISOR): Asymptomatic. Continue ASA and beta khushi tx. [...] made. Assessment & Plan (07/04/2019 6:15 PM SUBSTATION SUPERVISOR): On chronic lipid lowering therapy with good control. No changes made. Assessment & Plan (12/31/2018 12:25 PM CDT): On chronic lipid lowering therapy with good control. No changes made. Assessment & Plan (07/02/2018 11:27 AM SUBSTATION SUPERVISOR): On chronic lipid lowering therapy with good control. No changes made. Because of his high HDL, LDL cannot be calculated, but is definitely less than 83. Assessment & Plan (01/01/2018 12:00 PM CDT): On chronic lipid lowering therapy with good control. No changes made. Assessment & Plan (07/03/2017 12:01 PM SUBSTATION SUPERVISOR): LDL could not be calculated because of [...] made. Assessment & Plan (07/04/2019 6:15 PM SUBSTATION SUPERVISOR): Blood pressure is adequately controlled on current regimen. No change was made. Assessment & Plan (12/31/2018 12:26 PM CDT): Blood pressure is adequately controlled on current regimen. No change was made. Assessment & Plan (07/02/2018 11:26 AM SUBSTATION SUPERVISOR): Blood pressure is adequately controlled on current regimen. No change was made. Assessment & Plan (01/01/2018 12:00 PM CDT): Blood pressure is adequately controlled on current regimen. No change was made. 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 PATIENTS ICD IS FOLLOWED AT [facility] Hiatal hernia GERD (gastroesophageal reflux disease) Gastric [...] on file Legal Sex Male 9:13 PM SUBSTATION SUPERVISOR Gender Identity Not on file Sexual Orientation [...] Vaccine (#1) 2025 , 06/17/2021, 04/24/2020 Insurance * Guarantor: Antoni Mccormick Account Type Relation to Patient Date of Phone Billing Address Personal/Family Self [address] [facility] [place] [address] [facility] MEDICARE ADVANTAGE [facility] MEDICARE ADVANTAGE [facility] MEDICARE ADVANTAGE Care Teams Electrician Substation Supervisor Relationship Specialty Start Date End Date Vincenzo East MD PCP - General 07/02/13
--- OUTSIDE RECORDS SUMMARY | 2025-05-05 18:38 | XMS_ITS | Clinical Summary ---
Author Organization [facility] Address [address] [place] [address] Care Team Providers Care Blocking Machine Tender Name Role Phone Vincenzo East MD Primary Care Provider + Trini Carvajal MD Unavailable Unavailabl e Source Comments [facility],non-owned Affiliates and Associated Physician Practices is amultiple site organization consisting of ambulatory clinics and hospital sitesin [place], [place], [place] and [place]. This disclosure is being madepursuant to the Care Everywhere program and may not contain all information available regarding this patient. Last updated 18.[facility] Allergies Active Allergy Reactions Criticality Noted Date [...] on file Legal Sex Male 6:18 AM PLANT CONTROL AIDE Gender Identity Not on file Sexual Orientation Not on file Last Filed Vital Signs Vital Sign Reading Time Taken Comments Blood Pressure 121/53 01/02/2023 1:16 PM CDT Pulse 54 01/02/2023 1:16 PM CDT Temperature 36.3 C (97.4 F) 01/02/2023 1:16 PM CDT Respiratory Rate 18 08/20/2020 7:47 AM PLANT CONTROL AIDE Oxygen Saturation 97% 01/02/2023 1:16 PM CDT [...] your medications Medical Devices Implanted Type Area Fare Collector Device Identifier Shelf Expiration Date Model / Serial / Lot Sys Fx 37cm Cpsr Str Ss Peek Perm Hndl Implanted:Qty: 1 on 06/18/2020 by Heriberto Prado MD at [facility] Abdomen [employer] 03/17/2022 [id number] / / [id number] Bard Soft Mesh Large Pore Monofilament Poly Propylene Implanted:Qty: 1 on 06/18/2020 by Guzman Merida MD at [facility] Right: Abdomen [employer] 01/15/2025 [id number] / / [id number] Mesh Srg 6x3in Lg Pore Knit Mfl Smth Rnd Implanted:Qty: 1 on 08/04/2020 by Guzman Merida MD at [facility] Right: Abdomen [employer] 08/17/2024 [id number] / / [id number] Insurance [facility] MANAGED MEDICARE ADV [facility] MANAGED MEDICARE ADV Advance Directives * Full Code (Latest Code Status on File) Date Activated Date Inactivated Comments 06/18/2020 4:47 PM 06/19/2020 4:03 PM Care Teams Blocking Machine Tender Relationship Specialty Start Date End Date Vincenzo East MD [address] [address] PCP - General 12/01/17 Trini Carvajal MD [address] [address] Library Helper Cardiology 01/01/19
--- OUTSIDE RECORDS SUMMARY | 2025-05-05 18:38 | XMS_ITS | Clinical Summary ---
Author Organization [facility] Address [address] [place] [id number] Care Team Providers Care Epitaxial Reactor Technician Name Role Phone Unavailable Primary Care Provider [...]
== END 2025-05-05 18:06 | disposition home or self-care (01) ==
PROVIDERS: Emergency Provider Emergency Medicine; PCP Family Medicine Adolescent Medicine
DX: M79.604 Pain in right leg (principal); I48.91 Unspecified atrial fibrillation; Z87.891 Personal history of nicotine dependence
CPT/HCPCS: 93971; 99284; A9270